=== PATIENT | female | born 1965 | race Caucasian/White ===

== ENCOUNTER 2019-04-29 23:10 | Inpatient (IN) | payer MEDICARE, MEDICAID ==
[~2019-04-29] VITALS: Ht 167.6 cm; Wt 114.5 kg
[~2019-04-29 23:10] MED LIST: AMOX1TAB58 PO; CLON2TAB9 PO; CLONAZEPAM1 MG PO; DILT120C99 PO; DIVA250T PO; GUAI100L41 PO; IBUP-1027 PO; LEVO100T5 PO; LITH450T PO; METO25TA4 PO; MINE120C TP; NICO4GUM42 BC; OXYB5TAB33 PO; PALI6TAB3 PO; QUET300T5 PO; QUET400T4 PO; ZOLP10TA PO
[2019-04-29 23:59] LABS: BASO # 0.1 x10^3/uL (0.0-0.2); BASO % 1 % (0-3); EOS % 0 % (0-3); HEMATOCRIT 40.1 % (36.0-47.0); HEMOGLOBIN 13.1 g/dL (12.0-15.5); LYMPH # 1.5 x10^3/uL (1.0-4.8); LYMPH % 7 % (24-48); MEAN CORPUSCULAR HEMOGLOBIN 29 pg (25-35); MEAN CORPUSCULAR HGB CONC 33 g/dL (31-37); MEAN CORPUSCULAR VOLUME 88 fL (79-100); MONO # 2.3 x10^3/uL (0.0-1.1); MONO % 11 % (0-9); NEUT # 17.4 x10^3/uL (1.8-7.7); NEUT % 82 % (31-73); PLATELET COUNT 175 x10^3/uL (140-400); RED BLOOD COUNT 4.54 x10^6/uL (3.50-5.40); RED CELL DISTRIBUTION WIDTH 14.7 % (11.5-14.5); WHITE BLOOD COUNT 21.4 x10^3/uL (4.0-11.0)
[2019-04-30] VITALS (28 sets, daily range): BP systolic 92–151; BP diastolic 52–94
[2019-04-30 00:06] LABS: CALCIUM 9.5 mg/dL (8.5-10.1); CREATININE 1.1 mg/dL (0.6-1.0); GFR 51.8; POTASSIUM 3.7 mmol/L (3.5-5.1)
[2019-04-30 00:12] LABS: ALBUMIN 3.2 g/dL (3.4-5.0); ALBUMIN/GLOBULIN RATIO 0.8 (1.0-1.7); MAGNESIUM 2.4 mg/dL (1.8-2.4); TOTAL BILIRUBIN 0.4 mg/dL (0.2-1.0); TOTAL PROTEIN 7.3 g/dL (6.4-8.2)
[2019-04-30 00:18] LABS: % LYMPHS 6 % (24-48); % MONOS 3 % (0-10); % SEGS 91 % (35-66); ANISOCYTOSIS SLIGHT; PLT ESTIMATE ADEQUATE (ADEQUATE); TOXIC VACUOLATION SLIGHT
--- NOTE | 2019-04-30 00:34 | PHYS DOC ---
Past Medical History Past Medical History: Anxiety, High Cholesterol, Hypothyroid, Pneumonia, Other Additional Past Medical Histor: unspecified heart failure Past Surgical History: Other Additional Past Surgical Histo: unknown Alcohol Use: None Drug Use: None Adult General Chief Complaint Chief Complaint: SHORTNESS OF BREATH HPI HPI Patient is a 53-year-old female who arrives via EMS with STEMI alert by EMS. EMS responded for report of shortness of breath with low oxygen saturation and complaint of generalized weakness for the last few days. Patient denies any chest pain, nausea, vomiting or diaphoresis. She does admit to feeling some shortness of breath.[] Review of Systems Review of Systems Constitutional: Denies fever or chills [] Respiratory: Complains of shortness of breath [] Cardiovascular: No additional information not addressed in HPI [] GI: Denies abdominal pain, nausea, vomiting or diarrhea [] Integument: Denies rash or skin lesions [] Neurologic: Denies headache, focal weakness or sensory changes [] All other systems were reviewed and found to be within normal limits, except as documented in this note. Current Medications Current Medications Current Medications Medications (Trade) Dose Ordered Sig/Olu Start Time Stop Time Status Last Admin Dose Admin Atorvastatin Calcium (Lipitor) 40 mg QHS 04/30/19 21:00 Heparin Sodium (Porcine) (Heparin Sodium) 2,000 unit PRN Q6HRS PRN 04/30/19 00:45 Heparin Sodium/ Dextrose 500 ml @ 0 mls/hr CONT PRN PRN 04/30/19 00:45 Allergies Allergies Allergies Coded Allergies Type Severity Reaction Last Updated Verified No Known Drug Allergies 09/23/15 No Physical Exam Physical Exam Constitutional: Well developed, well nourished, no acute distress, non-toxic appearance. [] HENT: Normocephalic, atraumatic, bilateral external ears normal, oropharynx moist, no oral exudates, nose normal. [] Eyes: PERRLA, EOMI, conjunctiva normal, no discharge. [] Neck: Normal range of motion, no tenderness, supple. [] Cardiovascular: Regular rate and rhythm[] Lungs & Thorax: Very good air movement is noted throughout with fine rhonchi to auscultation [] Abdomen: Bowel sounds normal, soft, morbidly obese, no tenderness. [] Skin: Warm, dry, no erythema, no rash. [] Extremities: No tenderness, no cyanosis, no clubbing, ROM intact. [] Neurologic: Alert and oriented X 3, no focal deficits noted. [] Current Patient Data Lab Values Laboratory Tests Test 04/29/19 23:45 White Blood Count 21.4 x10^3/uL (4.0-11.0) H Red Blood Count 4.54 x10^6/uL (3.50-5.40) Hemoglobin 13.1 g/dL (12.0-15.5) Hematocrit 40.1 % (36.0-47.0) Mean Corpuscular Volume 88 fL (79-100) Mean Corpuscular Hemoglobin 29 pg (25-35) Mean Corpuscular Hemoglobin Concent 33 g/dL (31-37) Red Cell Distribution Width 14.7 % (11.5-14.5) H Platelet Count 175 x10^3/uL (140-400) Neutrophils (%) (Auto) 82 % (31-73) H Lymphocytes (%) (Auto) 7 % (24-48) L Monocytes (%) (Auto) 11 % (0-9) H Eosinophils (%) (Auto) 0 % (0-3) Basophils (%) (Auto) 1 % (0-3) Neutrophils # (Auto) 17.4 x10^3/uL (1.8-7.7) H Lymphocytes # (Auto) 1.5 x10^3/uL (1.0-4.8) Monocytes # (Auto) 2.3 x10^3/uL (0.0-1.1) H Eosinophils # (Auto) 0.0 x10^3/uL (0.0-0.7) Basophils # (Auto) 0.1 x10^3/uL (0.0-0.2) Segmented Neutrophils % 91 % (35-66) H Lymphocytes % 6 % (24-48) L Monocytes % 3 % (0-10) Toxic Vacuolation Slight Platelet Estimate Adequate (ADEQUATE) Anisocytosis Slight Sodium Level 143 mmol/L (136-145) Potassium Level 3.7 mmol/L (3.5-5.1) Chloride Level 105 mmol/L (98-107) Carbon Dioxide Level 22 mmol/L (21-32) Anion Gap 16 (6-14) H Blood Urea Nitrogen 15 mg/dL (7-20) Creatinine 1.1 mg/dL (0.6-1.0) H Estimated GFR (Cockcroft-Gault) 51.8 BUN/Creatinine Ratio 14 (6-20) Glucose Level 124 mg/dL (70-99) H Calcium Level 9.5 mg/dL (8.5-10.1) Magnesium Level 2.4 mg/dL (1.8-2.4) Total Bilirubin 0.4 mg/dL (0.2-1.0) Aspartate Amino Transferase (AST) 47 U/L (15-37) H Alanine Aminotransferase (ALT) 24 U/L (14-59) Alkaline Phosphatase 78 U/L (46-116) Troponin I Quantitative 12.244 ng/mL (0.000-0.055) HS-Kpy-B-Type Natriuretic Peptide 3772 pg/mL (0-124) H Total Protein 7.3 g/dL (6.4-8.2) Albumin 3.2 g/dL (3.4-5.0) L Albumin/Globulin Ratio 0.8 (1.0-1.7) L Lipase 66 U/L (73-393) L Laboratory Tests 04/29/19 23:45 Laboratory Tests 04/29/19 23:45 EKG EKG [] Interpretation Time: EKG demonstrates sinus rhythm with rate of 95. Radiology/Procedures Radiology/Procedures [] Course & Med Decision Making Course & Med Decision Making Pertinent Labs and Imaging studies reviewed. (See chart for details) [] Dragon Disclaimer Dragon Disclaimer This electronic medical record was generated, in whole or in part, using a voice recognition dictation system. Departure Departure Impression: Primary Impression: NSTEMI (non-ST elevated myocardial infarction) Disposition: ADMITTED INPATIENT Admitting Physician: MICHAEL (Dr. Wray) Condition: IMPROVED Referrals: ALEXANDRA ELMORE (PCP) CRISSY CROFT Jr. DO Apr 30, 2019 00:34
[2019-04-30] MEDS ORDERED: HEPARIN for IV BOLUS 10,000 UNIT/10 ML VIAL. IV PRN (00:45)
[2019-04-30] MEDS ORDERED: HEPARIN 25,000UTS/500ML PREMIX 500 ML IV PRN (00:45)
[2019-04-30] MEDS ORDERED: HEPARIN for IV BOLUS 10,000 UNIT/10 ML VIAL. IV ONE (01:00)
[2019-04-30] MEDS ORDERED: ONDANSETRON PF 4 MG/2 ML VIAL. IV PRN (01:45)
[2019-04-30] MEDS ORDERED: MORPHINE SULFATE 2 MG/ML VIAL. IV PRN (01:45)
--- NOTE | 2019-04-30 02:40 | NUR ---
Pt arrived on unit via bed accompanied by ED RN. Pt oriented to unit including call light, bathroom use, and privacy policies. Pt c/o chest discomfort and stated it has not changed since her time in the ED. Pt accompanied by family and admission questions answered by pt's mother. Will continue to monitor
[2019-04-30] MEDS ORDERED: MORPHINE SULFATE 2 MG/ML VIAL. IV ONE (02:45)
[2019-04-30] MEDS: HEPARIN for IV BOLUS 10,000 UNIT/10 ML VIAL. IV PRN (02:54)
[2019-04-30] MEDS: HEPARIN 25,000UTS/500ML PREMIX 500 ML IV PRN (02:59)
[2019-04-30] MEDS ORDERED: OXYB5TAB33 PO (05:47)
--- NOTE | 2019-04-30 06:08 | RAD ---
Study: PORTABLE CHEST 1V Indication: Shortness of breath. Comparison: 12/06/2015 Findings: The cardiomediastinal silhouette is enlarged. The central vascular structures are prominent but to a similar degree relative to the prior. Blunting of the left costophrenic angle suggesting a pleural effusion. Left lower lung volume loss is also likely present. No pneumothorax. No discrete lobar infiltrate however there is haziness at the retrocardiac left lung medially. No free air seen under the diaphragm. Impression: 1. Enlargement of the cardiomediastinal silhouette as well as central vascular prominence. This appearance is similar to the prior. A component of pulmonary edema is likely present as there is the suggestion of a small left pleural effusion. 2. Basilar volume loss as well as hazy increased attenuation at the medial aspect of the left lower lung. Though this appearance is not overtly concerning, consider correlation for any laboratory findings that would suggest pneumonia. Electronically signed by: DANIEL CARBAJAL MD (04/30/2019 6:05 AM) [facility]
[2019-04-30] MEDS ORDERED: ONDA4TAB7 PO (06:09)
[2019-04-30] MEDS ORDERED: ACET325T9 PO (06:09)
[2019-04-30] MEDS ORDERED: DILT180C2 PO (06:09)
[2019-04-30] MEDS ORDERED: POLY17PO29 PO (06:09)
[2019-04-30] MEDS ORDERED: LOPE2CAP3 PO (06:09)
[2019-04-30] MEDS ORDERED: IBUP-1027 PO (06:09)
[2019-04-30] MEDS ORDERED: IPRA3AMP29 NEB (06:09)
[2019-04-30] MEDS ORDERED: DIVA500T17 PO (06:09)
[2019-04-30] MEDS ORDERED: LEVO125T5 PO (06:09)
[2019-04-30] MEDS ORDERED: LITH300T3 PO (06:09)
[2019-04-30] MEDS ORDERED: DILT240C2 PO (06:10)
[2019-04-30] MEDS ORDERED: FLU VAX QS 2019-20 (36MOS+)/PF 0.5 ML SYRINGE. VAX IM ONE (09:00)
[2019-04-30] MEDS: IV NORMAL SALINE 1000ML BAG 1,000 ML IV SCH ×2 (11:00→23:32)
[2019-04-30] MEDS: ASPIRIN ENTERIC COATED 81 MG TABLET.DR. PO SCH (11:27)
[2019-04-30] MEDS: METOPROLOL TART IMMED RELEASE 25 MG TABLET. PO SCH ×2 (11:27→21:03)
--- NOTE | 2019-04-30 11:44 | HP ---
ADMIT DATE: 04/30/2019 CHIEF COMPLAINT: Shortness of breath. HISTORY OF PRESENT ILLNESS: The patient is a pleasant middle-aged white female, who presented to the ER with shortness of breath. Interestingly, her troponin was bumped to 12.2. She appears to have had a myocardial infarction. I discussed the case with ER physician. We admitted the patient to the ICU with consultation to Cardiology. PAST MEDICAL HISTORY: Anxiety, hypothyroidism, pneumonia, CHF, hypertension, I think she has seizures, psychiatric issues, insomnia, bipolar, urinary incontinence. ALLERGIES: HALDOL. FAMILY HISTORY: Hypertension. SOCIAL HISTORY: She does not drink, smoke, or take drugs. MEDICATIONS: Reviewed, please refer to the MRAD. REVIEW OF SYSTEMS: GENERAL: No history of weight change, weakness or fevers. SKIN: No bruising, hair changes or rashes. EYES: No blurred, double or loss of vision. NOSE AND THROAT: No history of nosebleeds, hoarseness or sore throat. HEART: No history of palpitations, chest pain or shortness of breath on exertion. LUNGS: Denies cough, hemoptysis, wheezing or shortness of breath. GASTROINTESTINAL: Denies changes in appetite, nausea, vomiting, diarrhea or constipation. GENITOURINARY: No history of frequency, urgency, hesitancy or nocturia. NEUROLOGIC: Denies history of numbness, tingling, tremor or weakness. PSYCHIATRIC: No history of panic, anxiety or depression. ENDOCRINE: No history of heat or cold intolerance, polyuria or polydipsia. EXTREMITIES: Denies muscle weakness, joint pain, pain on walking or stiffness. PHYSICAL EXAMINATION: VITALS: Within normal limits and are stable. GENERAL: No apparent distress. Alert and oriented. HEENT: Head is normocephalic, atraumatic, pupils were equally round and reactive to light and accommodation. NECK: Supple, no JVD, no thyromegaly was noted. LUNGS: Clear to auscultation in all lung coronado without rhonchi or wheezing. HEART: RRR, S1, S2 present. Peripheral pulses intact, no obvious murmurs were noted. ABDOMEN: Soft, nontender. Positive bowel sounds no organomegaly, normal bowel sounds. EXTREMITIES: Without any cyanosis, clubbing, or edema. Pedal pulses intact, Homans sign is negative. NEUROLOGIC: Normal speech, normal tone. A & O x3, moves all extremities, no obvious focal deficits. PSYCHIATRIC: Normal affect, normal mood. Stable. SKIN: No ulcerations or rashes, good skin turgor, no jaundice. VASCULAR: Good capillary refill, neurovascular bundle appears to be intact. LABORATORY DATA: Troponin is 12. ASSESSMENT AND PLAN: Acute myocardial infarction. The patient has been admitted. We are consulting Cardiology. Serial enzymes, serial EKGs, ICU monitoring. Resume home meds, DVT prophylaxis. Suspect she is going to need a cardiac cath. We will await Cardiology input. JUAN ANTONIO SANDY DO DR: CHERYL/archie JOB#: [id number] / [id number]
[2019-04-30] MEDS ORDERED: HEPARIN for IV BOLUS 10,000 UNIT/10 ML VIAL. ONE (12:06)
[2019-04-30] MEDS ORDERED: IODIXANOL 320 MG/ML 100 ML VIAL. ONE (12:06)
[2019-04-30] MEDS ORDERED: MIDAZOLAM HCL/PF 2 MG/2 ML VIAL. ONE (12:06)
[2019-04-30] MEDS ORDERED: VERAPAMIL 5 MG/2 ML VIAL. ONE (12:06)
[2019-04-30] MEDS ORDERED: fentaNYL PF VIAL 100 MCG/2 ML VIAL ONE (12:06)
[2019-04-30] MEDS ORDERED: NITROGLYCERIN 200 MCG/2 ML SYRINGE FOR CATH/VASC LAB. ONE (12:07)
[2019-04-30] MEDS ORDERED: HEPARIN for ARTERIAL LINE 1,500 ML ONE (12:07)
[2019-04-30] MEDS ORDERED: VERAPAMIL 5 MG/2 ML VIAL. IART ONE (12:45)
[2019-04-30] MEDS ORDERED: fentaNYL PF VIAL 100 MCG/2 ML VIAL IV ONE (12:45)
[2019-04-30] MEDS ORDERED: HEPARIN for IV BOLUS 10,000 UNIT/10 ML VIAL. IART ONE (12:45)
[2019-04-30] MEDS ORDERED: MIDAZOLAM HCL/PF 2 MG/2 ML VIAL. IV ONE (12:45)
[2019-04-30] MEDS ORDERED: LIDOCAINE 1% PF 2 ML VIAL. INJ ONE (12:45)
[2019-04-30] MEDS ORDERED: NITROGLYCERIN 200 MCG/2 ML SYRINGE FOR CATH/VASC LAB. IART ONE (12:45)
[2019-04-30] MEDS ORDERED: IODIXANOL 320 MG/ML 100 ML VIAL. IART ONE (12:45)
[2019-04-30] MEDS ORDERED: NOREPINEPHRIN 8MG/250ML PREMIX 250 ML IV PRN (13:00)
--- NOTE | 2019-04-30 14:03 | PDOC2 ---
CARDIOLOGY CONSULT NOTE CHEIF COMPLAINT: Chest pain HPI: 53-year-old woman coming into the hospital in the setting of chest pain and shortness of breath. She probably has been having shortness of breath for 3 or 4 days. EMS headache initially activated the catheter lab team due to concern for acute ST elevation LA in the teacher early childhood development hours today. After review there did not appear to be any significant ST elevations and she was treated medically. This morning she continued to have hypoxia and chest discomfort and therefore after discussion the risks and benefits of the procedure with the patient's mother due to the patient's cognitive limitations the patient was taken to the catheterization laboratory. Her catheter revealed likely spontaneous coronary artery dissection versus stress-induced cardio myopathy of unclear etiology. PMHX: Bipolar/schizophrenia Prior history of tobacco abuse SOCHX: Lives in [facility] FAMHX: Noncontributory for any cardiac issues CURRENT MEDS: Current Medications Medications (Trade) Dose Ordered Sig/Olu Route PRN Reason Start Time Stop Time Status Last Admin Dose Admin Heparin Sodium/ Dextrose 500 ml @ 0 mls/hr CONT PRN IV CARDIOVASCULAR PROTOCOL 04/30/19 02:00 04/30/19 02:59 Heparin Sodium (Porcine) (Heparin Sodium) 3,050 unit PRN Q6HRS PRN IV FOR UFH LEVEL LESS THAN 0.2 04/30/19 02:00 04/30/19 02:54 Sodium Chloride 1,000 ml @ 75 mls/hr [id number] IV 04/30/19 11:00 04/30/19 11:00 Metoprolol Tartrate (Lopressor) 25 mg BID PO 04/30/19 11:15 04/30/19 11:27 Aspirin (Ecotrin) 81 mg DAILYWBKFT PO 04/30/19 11:15 04/30/19 11:27 Nitroglycerin (Nitroglycerin) 200 mcg 1X ONCE IART 04/30/19 12:45 04/30/19 12:50 DC 04/30/19 12:45 Verapamil HCl (Verapamil) 2.5 mg 1X ONCE IART 04/30/19 12:45 04/30/19 12:50 DC 04/30/19 12:45 Heparin Sodium (Porcine) (Heparin Sodium) 2,500 unit 1X ONCE IART 04/30/19 12:45 04/30/19 12:50 DC 04/30/19 12:45 Heparin Sodium/ Sodium Chloride (HEPARIN for ARTERIAL LINE FLUSH) 1,000 unit 1X ONCE IART 04/30/19 12:45 04/30/19 12:50 DC 04/30/19 12:45 Heparin Sodium/ Sodium Chloride (HEPARIN for ARTERIAL LINE FLUSH) 1,000 unit 1X ONCE IART 04/30/19 12:45 04/30/19 12:50 DC 04/30/19 12:45 Midazolam HCl (Versed) 2 mg 1X ONCE IV 04/30/19 12:45 04/30/19 12:50 DC 04/30/19 12:45 Fentanyl Citrate (Fentanyl 2ml Vial) 100 mcg 1X ONCE IV 04/30/19 12:45 04/30/19 12:50 DC 04/30/19 12:45 Iodixanol (Visipaque 320) 100 ml 1X ONCE IART 04/30/19 12:45 04/30/19 12:50 DC 04/30/19 12:45 Lidocaine HCl (Xylocaine-Mpf 1% 2ml Vial) 2 ml 1X ONCE INJ 04/30/19 12:45 04/30/19 12:50 DC 04/30/19 12:45 ALLERGIES: Allergies Coded Allergies Type Severity Reaction Last Updated Verified haloperidol Allergy Severe tongue swelling 04/30/19 Yes ROS: She has notable dyspnea, chest tenderness and chest pain. She denies any associated lower extremity edema, orthopnea or PND. She currently does have some increasing oxygen requirements. No abdominal pain. No palpitations or syncope. PHYSICAL EXAM: Vital Signs/I&O: Vital Signs Date Time Temp Pulse Resp B/P (MAP) Pulse Ox O2 Delivery O2 Flow Rate FiO2 04/30/19 13:29 112 16 96 Nasal Cannula 3.0 04/30/19 11:27 123/85 04/30/19 08:00 98.8 98.8 I & O 04/29/19 04/29/19 04/30/19 15:00 23:00 07:00 Intake Total 47 ml Output Total 0 ml Balance 47 ml Physical Exam: GEN.: No apparent distress. Alert and oriented. HEENT: Head is normocephalic, atraumatic NECK: Supple. LUNGS: Decreased breath sounds at lung bases. HEART: Irregularly irregular S1, S2 present. Peripheral pulses intact ABDOMEN: Soft, nontender. Positive bowel sounds. EXTREMITIES: Without any cyanosis. NEUROLOGIC: Normal speech, normal tone PSYCHIATRIC: Normal affect, normal mood. SKIN: No ulcerations DIAGNOSTIC TESTING: Troponin peaked at 12.6 EKG demonstrates nonspecific diffuse ST-T wave changes Cardiac catheterization revealed likely spontaneous coronary artery dissection of the mid distal LAD and probably the distal PDA. LV function was moderately diminished at approximately 40%. Lab Laboratory Tests Test 04/29/19 23:45 04/30/19 09:10 White Blood Count 21.4 x10^3/uL (4.0-11.0) H Red Blood Count 4.54 x10^6/uL (3.50-5.40) Hemoglobin 13.1 g/dL (12.0-15.5) Hematocrit 40.1 % (36.0-47.0) Mean Corpuscular Volume 88 fL (79-100) Mean Corpuscular Hemoglobin 29 pg (25-35) Mean Corpuscular Hemoglobin Concent 33 g/dL (31-37) Red Cell Distribution Width 14.7 % (11.5-14.5) H Platelet Count 175 x10^3/uL (140-400) Neutrophils (%) (Auto) 82 % (31-73) H Lymphocytes (%) (Auto) 7 % (24-48) L Monocytes (%) (Auto) 11 % (0-9) H Eosinophils (%) (Auto) 0 % (0-3) Basophils (%) (Auto) 1 % (0-3) Neutrophils # (Auto) 17.4 x10^3/uL (1.8-7.7) H Lymphocytes # (Auto) 1.5 x10^3/uL (1.0-4.8) Monocytes # (Auto) 2.3 x10^3/uL (0.0-1.1) H Eosinophils # (Auto) 0.0 x10^3/uL (0.0-0.7) Basophils # (Auto) 0.1 x10^3/uL (0.0-0.2) Segmented Neutrophils % 91 % (35-66) H Lymphocytes % 6 % (24-48) L Monocytes % 3 % (0-10) Toxic Vacuolation Slight Platelet Estimate Adequate (ADEQUATE) Anisocytosis Slight Sodium Level 143 mmol/L (136-145) Potassium Level 3.7 mmol/L (3.5-5.1) Chloride Level 105 mmol/L (98-107) Carbon Dioxide Level 22 mmol/L (21-32) Anion Gap 16 (6-14) H Blood Urea Nitrogen 15 mg/dL (7-20) Creatinine 1.1 mg/dL (0.6-1.0) H Estimated GFR (Cockcroft-Gault) 51.8 BUN/Creatinine Ratio 14 (6-20) Glucose Level 124 mg/dL (70-99) H Calcium Level 9.5 mg/dL (8.5-10.1) Total Bilirubin 0.4 mg/dL (0.2-1.0) Aspartate Amino Transf (AST/SGOT) 47 U/L (15-37) H Alkaline Phosphatase 78 U/L (46-116) Total Protein 7.3 g/dL (6.4-8.2) Albumin 3.2 g/dL (3.4-5.0) L Albumin/Globulin Ratio 0.8 (1.0-1.7) L Lipase 66 U/L (73-393) L Heparin Anti-Xa Act, Unfractionated < 0.10 IU/mL (0.30-0.70) L Laboratory Tests 04/29/19 23:45 ASSESSMENT: 1. Acute hypoxic respiratory failure 2. Non-ST elevation microinfarction likely secondary to spontaneous coronary artery dissection 3. Prior history of tobacco abuse 4. Cannot rule out stress-induced cardio myopathy. 5. Cor pulmonale based on right heart catheterization with a right atrial pressure 14, mean PA pressure of 31, normal LVEDP. PLAN: 1. Discussed with the patient's family in great detail. At this present time she does not appear to be in cardiac shock and we will continue intravenous and coagulation. There is a small possibility based on her right heart catheter that this could've been precipitated by pulmonary embolus although the treatment management would be the same at this time. Would defer any CT angiography unless she has any clinical deterioration. Check lower extremity venous Dopplers. Continue asa, statin, metoprolol and hep gtt for now. MIC OLSON MD Apr 30, 2019 14:03
[2019-04-30] MEDS: ATORVASTATIN CALCIUM 40 MG TABLET. PO SCH (21:03)
--- NOTE | 2019-04-30 22:09 | NUR ---
paged Dr. Pierre to confirm Heparin gtt is still to be running as it was not restarted following seed analysis laboratory assistant. Dr. Pierre requested Heparin gtt be restarted at initial rate.
[2019-05-01] VITALS (15 sets, daily range): BP systolic 91–150; BP diastolic 51–92
[2019-05-01 03:52] LABS: BASO # 0.1 x10^3/uL (0.0-0.2); BASO % 1 % (0-3); EOS # 0.1 x10^3/uL (0.0-0.7); EOS % 1 % (0-3); HEMATOCRIT 35.1 % (36.0-47.0); HEMOGLOBIN 11.4 g/dL (12.0-15.5); LYMPH # 1.8 x10^3/uL (1.0-4.8); LYMPH % 13 % (24-48); MEAN CORPUSCULAR HEMOGLOBIN 28 pg (25-35); MEAN CORPUSCULAR HGB CONC 33 g/dL (31-37); MEAN CORPUSCULAR VOLUME 87 fL (79-100); MONO # 1.3 x10^3/uL (0.0-1.1); MONO % 9 % (0-9); NEUT # 10.6 x10^3/uL (1.8-7.7); NEUT % 77 % (31-73); PLATELET COUNT 191 x10^3/uL (140-400); RED BLOOD COUNT 4.04 x10^6/uL (3.50-5.40); WHITE BLOOD COUNT 13.9 x10^3/uL (4.0-11.0)
[2019-05-01 04:10] LABS: ALBUMIN 2.5 g/dL (3.4-5.0); ALBUMIN/GLOBULIN RATIO 0.6 (1.0-1.7); CREATININE 0.9 mg/dL (0.6-1.0); GFR 65.2; POTASSIUM 3.8 mmol/L (3.5-5.1); TOTAL BILIRUBIN 0.3 mg/dL (0.2-1.0); TOTAL PROTEIN 6.7 g/dL (6.4-8.2)
[2019-05-01] MEDS: HEPARIN for IV BOLUS 10,000 UNIT/10 ML VIAL. IV PRN ×2 (04:17→12:50)
--- NOTE | 2019-05-01 10:06 | PDOC ---
[employer] PROGRESS NOTE Chief Complaint Chief Complaint Chest pain History of Present Illness History of Present Illness 05/01/19 Pt seen and examined Pt had an NSTEMI and was in the photonic laboratory technician yesterday with likely coronary artery dissection Troponin peak 12.2 Pt was quite talkative today and seems to be at her baseline DW RN and pt's mother Vitals/I&O Vitals/I&O: Vital Signs Date Time Temp Pulse Resp B/P (MAP) Pulse Ox O2 Delivery O2 Flow Rate FiO2 05/01/19 09:00 73 30 104/59 (74) 94 Nasal Cannula 2.0 05/01/19 07:00 98.3 98.3 I & O 04/30/19 04/30/19 05/01/19 15:00 23:00 07:00 Intake Total 200 ml 683 ml 1596 ml Output Total 850 ml 1 ml 1000 ml Balance -650 ml 682 ml 596 ml Physical Exam General: Alert, No acute distress Heart: Regular rate Lungs: Clear, Other Abdomen: Normal bowel sounds Extremities: No clubbing, No cyanosis Skin: No rashes Labs Labs: Laboratory Tests Test 05/01/19 03:30 White Blood Count 13.9 x10^3/uL (4.0-11.0) Red Blood Count 4.04 x10^6/uL (3.50-5.40) Hemoglobin 11.4 g/dL (12.0-15.5) Hematocrit 35.1 % (36.0-47.0) Mean Corpuscular Volume 87 fL (79-100) Mean Corpuscular Hemoglobin 28 pg (25-35) Mean Corpuscular Hemoglobin Concent 33 g/dL (31-37) Red Cell Distribution Width 15.0 % (11.5-14.5) Platelet Count 191 x10^3/uL (140-400) Neutrophils (%) (Auto) 77 % (31-73) Lymphocytes (%) (Auto) 13 % (24-48) Monocytes (%) (Auto) 9 % (0-9) Eosinophils (%) (Auto) 1 % (0-3) Basophils (%) (Auto) 1 % (0-3) Neutrophils # (Auto) 10.6 x10^3/uL (1.8-7.7) Lymphocytes # (Auto) 1.8 x10^3/uL (1.0-4.8) Monocytes # (Auto) 1.3 x10^3/uL (0.0-1.1) Eosinophils # (Auto) 0.1 x10^3/uL (0.0-0.7) Basophils # (Auto) 0.1 x10^3/uL (0.0-0.2) Heparin Anti-Xa Act, Unfractionated < 0.10 IU/mL (0.30-0.70) Sodium Level 142 mmol/L (136-145) Potassium Level 3.8 mmol/L (3.5-5.1) Chloride Level 105 mmol/L (98-107) Carbon Dioxide Level 28 mmol/L (21-32) Anion Gap 9 (6-14) Blood Urea Nitrogen 10 mg/dL (7-20) Creatinine 0.9 mg/dL (0.6-1.0) Estimated GFR (Cockcroft-Gault) 65.2 BUN/Creatinine Ratio 11 (6-20) Glucose Level 104 mg/dL (70-99) Calcium Level 9.0 mg/dL (8.5-10.1) Total Bilirubin 0.3 mg/dL (0.2-1.0) Aspartate Amino Transf (AST/SGOT) 37 U/L (15-37) Alanine Aminotransferase (ALT/SGPT) 34 U/L (14-59) Alkaline Phosphatase 71 U/L (46-116) Total Protein 6.7 g/dL (6.4-8.2) Albumin 2.5 g/dL (3.4-5.0) Albumin/Globulin Ratio 0.6 (1.0-1.7) Review of Systems Review of Systems: Denies n/v/d Denies SOA Assessment and Plan Assessmemt and Plan Problems Medical Problems: (1) NSTEMI (non-ST elevated myocardial infarction) Status: Acute Assessment NSTEMI Bipolar Schizophrenia Cor pulmonale POD day 1 photonic laboratory technician Plan Cardiac monitoring Wound care Appreciate cardiology input Serial EKGs Home meds DVT prophylaxis Full code Comment Review of Relevant I have reviewed the following items bushra (where applicable) has been applied. Medications: Current Medications Medications (Trade) Dose Ordered Sig/Olu Route PRN Reason Start Time Stop Time Status Last Admin Dose Admin Atorvastatin Calcium (Lipitor) 40 mg QHS PO 04/30/19 21:00 04/30/19 21:03 Sodium Chloride 1,000 ml @ 75 mls/hr [id number] IV 04/30/19 11:00 04/30/19 23:32 Metoprolol Tartrate (Lopressor) 25 mg BID PO 04/30/19 11:15 04/30/19 21:03 Aspirin (Ecotrin) 81 mg DAILYWBKFT PO 04/30/19 11:15 04/30/19 11:27 Nitroglycerin (Nitroglycerin) 200 mcg 1X ONCE IART 04/30/19 12:45 04/30/19 12:50 DC 04/30/19 12:45 Verapamil HCl (Verapamil) 2.5 mg 1X ONCE IART 04/30/19 12:45 04/30/19 12:50 DC 04/30/19 12:45 Heparin Sodium (Porcine) (Heparin Sodium) 2,500 unit 1X ONCE IART 04/30/19 12:45 04/30/19 12:50 DC 04/30/19 12:45 Heparin Sodium/ Sodium Chloride (HEPARIN for ARTERIAL LINE FLUSH) 1,000 unit 1X ONCE IART 04/30/19 12:45 04/30/19 12:50 DC 04/30/19 12:45 Heparin Sodium/ Sodium Chloride (HEPARIN for ARTERIAL LINE FLUSH) 1,000 unit 1X ONCE IART 04/30/19 12:45 04/30/19 12:50 DC 04/30/19 12:45 Midazolam HCl (Versed) 2 mg 1X ONCE IV 04/30/19 12:45 04/30/19 12:50 DC 04/30/19 12:45 Fentanyl Citrate (Fentanyl 2ml Vial) 100 mcg 1X ONCE IV 04/30/19 12:45 04/30/19 12:50 DC 04/30/19 12:45 Iodixanol (Visipaque 320) 100 ml 1X ONCE IART 04/30/19 12:45 04/30/19 12:50 DC 04/30/19 12:45 Lidocaine HCl (Xylocaine-Mpf 1% 2ml Vial) 2 ml 1X ONCE INJ 04/30/19 12:45 04/30/19 12:50 DC 04/30/19 12:45 JUAN ANTONIO SANDY III DO May 01, 2019 10:06
[2019-05-01] MEDS: HEPARIN 25,000UTS/500ML PREMIX 500 ML IV PRN (10:40)
--- NOTE | 2019-05-01 10:45 | PDOC ---
CARDIOLOGY PROGRESS NOTE SUBJECTIVE: No acute issues overnight. Still needing O2. No chest pain. Family feels breathing is better. OBJECTIVE: Vital Signs/I&O: Vital Signs Date Time Temp Pulse Resp B/P (MAP) Pulse Ox O2 Delivery O2 Flow Rate FiO2 05/01/19 10:00 82 26 110/68 (82) 95 Nasal Cannula 2.0 05/01/19 07:00 98.3 98.3 I & O 04/30/19 04/30/19 05/01/19 14:59 22:59 06:59 Intake Total 200 ml 683 ml 1596 ml Output Total 850 ml 1 ml 1000 ml Balance -650 ml 682 ml 596 ml Objective: GEN.: No apparent distress. Alert and oriented. HEENT: Head is normocephalic, atraumatic NECK: Supple. LUNGS: Clear to auscultation. HEART: RRR, S1, S2 present. Peripheral pulses intact ABDOMEN: Soft, nontender. Positive bowel sounds. EXTREMITIES: Without any cyanosis. NEUROLOGIC: Normal speech, normal tone PSYCHIATRIC: Normal affect, normal mood. SKIN: No ulcerations CURRENT MEDICATIONS: Current Medications Medications (Trade) Dose Ordered Sig/Olu Route PRN Reason Start Time Stop Time Status Last Admin Dose Admin Atorvastatin Calcium (Lipitor) 40 mg QHS PO 04/30/19 21:00 04/30/19 21:03 Sodium Chloride 1,000 ml @ 75 mls/hr [id number] IV 04/30/19 11:00 04/30/19 23:32 Metoprolol Tartrate (Lopressor) 25 mg BID PO 04/30/19 11:15 04/30/19 21:03 Aspirin (Ecotrin) 81 mg DAILYWBKFT PO 04/30/19 11:15 04/30/19 11:27 Nitroglycerin (Nitroglycerin) 200 mcg 1X ONCE IART 04/30/19 12:45 04/30/19 12:50 DC 04/30/19 12:45 Verapamil HCl (Verapamil) 2.5 mg 1X ONCE IART 04/30/19 12:45 04/30/19 12:50 DC 04/30/19 12:45 Heparin Sodium (Porcine) (Heparin Sodium) 2,500 unit 1X ONCE IART 04/30/19 12:45 04/30/19 12:50 DC 04/30/19 12:45 Heparin Sodium/ Sodium Chloride (HEPARIN for ARTERIAL LINE FLUSH) 1,000 unit 1X ONCE IART 04/30/19 12:45 04/30/19 12:50 DC 04/30/19 12:45 Heparin Sodium/ Sodium Chloride (HEPARIN for ARTERIAL LINE FLUSH) 1,000 unit 1X ONCE IART 04/30/19 12:45 04/30/19 12:50 DC 04/30/19 12:45 Midazolam HCl (Versed) 2 mg 1X ONCE IV 04/30/19 12:45 04/30/19 12:50 DC 04/30/19 12:45 Fentanyl Citrate (Fentanyl 2ml Vial) 100 mcg 1X ONCE IV 04/30/19 12:45 04/30/19 12:50 DC 04/30/19 12:45 Iodixanol (Visipaque 320) 100 ml 1X ONCE IART 04/30/19 12:45 04/30/19 12:50 DC 04/30/19 12:45 Lidocaine HCl (Xylocaine-Mpf 1% 2ml Vial) 2 ml 1X ONCE INJ 04/30/19 12:45 04/30/19 12:50 DC 04/30/19 12:45 DIAGNOSTIC TESTING: labs reviewed. Labs: Laboratory Tests 05/01/19 03:30 Laboratory Tests Test 05/01/19 03:30 White Blood Count 13.9 x10^3/uL (4.0-11.0) H Red Blood Count 4.04 x10^6/uL (3.50-5.40) Hemoglobin 11.4 g/dL (12.0-15.5) L Hematocrit 35.1 % (36.0-47.0) L Mean Corpuscular Volume 87 fL (79-100) Mean Corpuscular Hemoglobin 28 pg (25-35) Mean Corpuscular Hemoglobin Concent 33 g/dL (31-37) Red Cell Distribution Width 15.0 % (11.5-14.5) H Platelet Count 191 x10^3/uL (140-400) Neutrophils (%) (Auto) 77 % (31-73) H Lymphocytes (%) (Auto) 13 % (24-48) L Monocytes (%) (Auto) 9 % (0-9) Eosinophils (%) (Auto) 1 % (0-3) Basophils (%) (Auto) 1 % (0-3) Neutrophils # (Auto) 10.6 x10^3/uL (1.8-7.7) H Lymphocytes # (Auto) 1.8 x10^3/uL (1.0-4.8) Monocytes # (Auto) 1.3 x10^3/uL (0.0-1.1) H Eosinophils # (Auto) 0.1 x10^3/uL (0.0-0.7) Basophils # (Auto) 0.1 x10^3/uL (0.0-0.2) Heparin Anti-Xa Act, Unfractionated < 0.10 IU/mL (0.30-0.70) L Sodium Level 142 mmol/L (136-145) Potassium Level 3.8 mmol/L (3.5-5.1) Chloride Level 105 mmol/L (98-107) Carbon Dioxide Level 28 mmol/L (21-32) Anion Gap 9 (6-14) Blood Urea Nitrogen 10 mg/dL (7-20) Creatinine 0.9 mg/dL (0.6-1.0) Estimated GFR (Cockcroft-Gault) 65.2 BUN/Creatinine Ratio 11 (6-20) Glucose Level 104 mg/dL (70-99) H Calcium Level 9.0 mg/dL (8.5-10.1) Total Bilirubin 0.3 mg/dL (0.2-1.0) Aspartate Amino Transf (AST/SGOT) 37 U/L (15-37) Alkaline Phosphatase 71 U/L (46-116) Total Protein 6.7 g/dL (6.4-8.2) Albumin 2.5 g/dL (3.4-5.0) L Albumin/Globulin Ratio 0.6 (1.0-1.7) L ASSESSMENT: 1. Probable takatsubo versus SCAD of the LAD 2. HTN 3. Acute on chronic diastolic/systolic HF and possible cor pulmonale. PLAN: 1. Continue heparin gtt for 12 hours, stop there after, troponin now downtrending 2. Start plavix. 3. Continue asa, b-anthony. 4. LE DVT scan negative, lower suspicion for P.E. Consider CTA tomorrow if no changes in symptoms/hypoxia. Discussed with nursing and family. Supportive care. MIC OLSON MD May 01, 2019 10:45
[2019-05-01] MEDS ORDERED: CLOPIDOGREL BISULFATE 75 MG TABLET PO ONE (11:00)
[2019-05-01] MEDS ORDERED: FUROSEMIDE 40 MG/4 ML VIAL. IVP ONE (11:00)
[2019-05-01] MEDS: METOPROLOL TART IMMED RELEASE 25 MG TABLET. PO SCH ×2 (11:10→21:00)
[2019-05-01] MEDS: ASPIRIN ENTERIC COATED 81 MG TABLET.DR. PO SCH (11:10)
--- NOTE | 2019-05-01 11:40 | NUR ---
Pt transferred to room 208 with all belongings and mother here at time of transfer.
--- NOTE | 2019-05-01 11:47 | EKG ---
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
[2019-05-01] MEDS ORDERED: IBUPROFEN 400 MG TABLET. PO PRN (12:15)
[2019-05-01] MEDS ORDERED: LOPERAMIDE 2 MG CAPSULE PO PRN (12:15)
[2019-05-01] MEDS ORDERED: ACETAMINOPHEN 325 MG TABLET. PO PRN ×2 (12:15→16:30)
[2019-05-01] MEDS: LEVOTHYROXINE 125 MCG TABLET PO SCH (12:29)
[2019-05-01] MEDS ORDERED: ZOLPIDEM 5 MG TABLET. PO PRN (12:30)
[2019-05-01] MEDS: IV NORMAL SALINE 1000ML BAG 1,000 ML IV SCH ×2 (12:37→23:12)
[2019-05-01] MEDS: IPRATRPIUM/ALBUTEROL 0.5/2.5MG 3 ML NEBU. NEB SCH ×3 (13:00→20:11)
[2019-05-01] MEDS ORDERED: LITHIUM CARBONATE 300 MG CAPSULE PO SCH (13:00)
[2019-05-01] MEDS ORDERED: METOPROLOL TART IMMED RELEASE 25 MG TABLET. PO SCH (13:00)
[2019-05-01] MEDS ORDERED: POLYETHYLENE GLYCOL 3350 17 GM PACKET. PO SCH (13:00)
[2019-05-01] MEDS: DIVALPROEX EXTENDED RELEASE 250 MG TAB.ER.24H. PO SCH (13:37)
[2019-05-01] MEDS ORDERED: ONDANSETRON ODT 4 MG TAB.RAPDIS. PO SCH (14:00)
[2019-05-01] MEDS ORDERED: OXYBUTYNIN CHLORIDE 5 MG TABLET PO PRN (14:00)
[2019-05-01] MEDS ORDERED: LITH300T30 PO (16:29)
[2019-05-01] MEDS ORDERED: ONDANSETRON ODT 4 MG TAB.RAPDIS. PO PRN (16:45)
[2019-05-01] MEDS ORDERED: POLYETHYLENE GLYCOL 3350 17 GM PACKET. PO PRN (16:45)
[2019-05-01] MEDS: MINERAL OIL/PETROLATUM TOPICAL CREAM 113GM JAR. TP SCH (20:59)
[2019-05-01] MEDS: ZOLPIDEM 5 MG TABLET. PO SCH (20:59)
[2019-05-01] MEDS: clonazePAM 0.5 MG TABLET PO SCH (20:59)
[2019-05-01] MEDS: ATORVASTATIN CALCIUM 40 MG TABLET. PO SCH (20:59)
[2019-05-01] MEDS: OXYBUTYNIN CHLORIDE 5 MG TABLET PO SCH (21:00)
[2019-05-01] MEDS: QUEtiapine 100 MG TABLET. PO SCH (21:01)
[2019-05-01] MEDS: LITHIUM CARBONATE ER 300 MG TABLET.ER PO SCH (21:01)
[2019-05-02 02:30] VITALS: BP 171/72
[2019-05-02 03:48] LABS: BASO % 1 % (0-3); EOS # 0.2 x10^3/uL (0.0-0.7); EOS % 2 % (0-3); HEMATOCRIT 34.5 % (36.0-47.0); HEMOGLOBIN 11.3 g/dL (12.0-15.5); LYMPH # 1.6 x10^3/uL (1.0-4.8); LYMPH % 15 % (24-48); MEAN CORPUSCULAR HEMOGLOBIN 29 pg (25-35); MEAN CORPUSCULAR HGB CONC 33 g/dL (31-37); MEAN CORPUSCULAR VOLUME 88 fL (79-100); MONO % 10 % (0-9); NEUT # 7.7 x10^3/uL (1.8-7.7); NEUT % 73 % (31-73); PLATELET COUNT 219 x10^3/uL (140-400); RED BLOOD COUNT 3.95 x10^6/uL (3.50-5.40); RED CELL DISTRIBUTION WIDTH 14.6 % (11.5-14.5); WHITE BLOOD COUNT 10.5 x10^3/uL (4.0-11.0)
[2019-05-02 04:08] LABS: ALBUMIN 2.7 g/dL (3.4-5.0); ALBUMIN/GLOBULIN RATIO 0.6 (1.0-1.7); CALCIUM 9.1 mg/dL (8.5-10.1); GFR 57.8; POTASSIUM 3.3 mmol/L (3.5-5.1); TOTAL BILIRUBIN 0.2 mg/dL (0.2-1.0); TOTAL PROTEIN 7.1 g/dL (6.4-8.2)
[2019-05-02] MEDS: LEVOTHYROXINE 125 MCG TABLET PO SCH (05:26)
[2019-05-02 07:00] VITALS: BP 123/70
[2019-05-02] MEDS: IPRATRPIUM/ALBUTEROL 0.5/2.5MG 3 ML NEBU. NEB SCH ×4 (08:28→19:34)
[2019-05-02] MEDS ORDERED: PALIPERIDONE PO SCH (09:00)
[2019-05-02] MEDS: clonazePAM 0.5 MG TABLET PO SCH ×2 (09:47→20:52)
[2019-05-02] MEDS: DIVALPROEX EXTENDED RELEASE 250 MG TAB.ER.24H. PO SCH (09:47)
[2019-05-02] MEDS: ASPIRIN ENTERIC COATED 81 MG TABLET.DR. PO SCH (09:48)
[2019-05-02] MEDS: CLOPIDOGREL BISULFATE 75 MG TABLET PO SCH (09:48)
[2019-05-02] MEDS: METOPROLOL TART IMMED RELEASE 25 MG TABLET. PO SCH ×2 (09:48→20:53)
[2019-05-02] MEDS: LITHIUM CARBONATE ER 300 MG TABLET.ER PO SCH ×2 (09:49→20:52)
[2019-05-02] MEDS: OXYBUTYNIN CHLORIDE 5 MG TABLET PO SCH ×2 (09:49→20:52)
[2019-05-02 10:37] VITALS: BP 135/71
--- NOTE | 2019-05-02 12:33 | PDOC ---
JONO BRASHER CABINET MOUNTER 05/02/19 1233: CARDIO Progress Notes Date and Time Date of Service 05/02/19 Time of Evaluation 1210 Subjective Subjective: No Chest Pain, No Palpitations, Other (breathing better today) Vitals Vitals Vital Signs Date Time Temp Pulse Resp B/P (MAP) Pulse Ox O2 Delivery O2 Flow Rate FiO2 05/02/19 12:15 91 Room Air 05/02/19 10:37 98.2 72 18 135/71 (92) 98.2 05/02/19 02:35 2.0 Weight Weight [ ] Input and Output Intake and Output Intake and Output 05/02/19 06:59 Intake Total 2420 ml Output Total 1552 ml Balance 868 ml Intake Oral 1520 ml IV Total 900 ml Output Urine Total 1550 ml Stool Total 2 ml # Voids 2 Laboratory Labs Laboratory Tests Test 05/02/19 03:25 White Blood Count 10.5 x10^3/uL (4.0-11.0) Red Blood Count 3.95 x10^6/uL (3.50-5.40) Hemoglobin 11.3 g/dL (12.0-15.5) Hematocrit 34.5 % (36.0-47.0) Mean Corpuscular Volume 88 fL (79-100) Mean Corpuscular Hemoglobin 29 pg (25-35) Mean Corpuscular Hemoglobin Concent 33 g/dL (31-37) Red Cell Distribution Width 14.6 % (11.5-14.5) Platelet Count 219 x10^3/uL (140-400) Neutrophils (%) (Auto) 73 % (31-73) Lymphocytes (%) (Auto) 15 % (24-48) Monocytes (%) (Auto) 10 % (0-9) Eosinophils (%) (Auto) 2 % (0-3) Basophils (%) (Auto) 1 % (0-3) Neutrophils # (Auto) 7.7 x10^3/uL (1.8-7.7) Lymphocytes # (Auto) 1.6 x10^3/uL (1.0-4.8) Monocytes # (Auto) 1.0 x10^3/uL (0.0-1.1) Eosinophils # (Auto) 0.2 x10^3/uL (0.0-0.7) Basophils # (Auto) 0.0 x10^3/uL (0.0-0.2) Sodium Level 142 mmol/L (136-145) Potassium Level 3.3 mmol/L (3.5-5.1) Chloride Level 104 mmol/L (98-107) Carbon Dioxide Level 29 mmol/L (21-32) Anion Gap 9 (6-14) Blood Urea Nitrogen 9 mg/dL (7-20) Creatinine 1.0 mg/dL (0.6-1.0) Estimated GFR (Cockcroft-Gault) 57.8 BUN/Creatinine Ratio 9 (6-20) Glucose Level 126 mg/dL (70-99) Calcium Level 9.1 mg/dL (8.5-10.1) Total Bilirubin 0.2 mg/dL (0.2-1.0) Aspartate Amino Transf (AST/SGOT) 57 U/L (15-37) Alanine Aminotransferase (ALT/SGPT) 61 U/L (14-59) Alkaline Phosphatase 71 U/L (46-116) Total Protein 7.1 g/dL (6.4-8.2) Albumin 2.7 g/dL (3.4-5.0) Albumin/Globulin Ratio 0.6 (1.0-1.7) Physical Exam HEENT: Neck Supple W Full Motion Chest: Symmetric LUNGS: Clear to Auscultation Heart: S1S2 Abdomen: Soft N/T Extremities: No Edema Neurology: alert, follow commands Assessment Assessment 1. Acute hypoxic respiratory failure, multifactorial. Better compensated 2. NSTEMI; troponin trended downward. 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 3. Acute on chronic diastolic/systolic CHF, possible cor pulmonale 4. 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 Hypertension; controlled Recommendations Echocardiogram Secondary prevention including DAPT with ASA, Plavix. BB therapy HF optimization Add lisinopril MIC OLSON MD 05/03/19 0909: CARDIO Progress Notes Plan Plan Late entry for 05/02/2019 Pt. seen and examined. 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 Supportive care. Patient overall improving. JONO BRASHER APRN May 02, 2019 12:33 MIC OLSON MD May 03, 2019 09:09
--- NOTE | 2019-05-02 12:40 | PDOC ---
[facility] [facility] PROGRESS NOTE Chief Complaint Chief Complaint Chest pain History of Present Illness History of Present Illness 05/01/19 Pt seen and examined Pt had an NSTEMI and was in the slab polisher yesterday with likely coronary artery dissection Troponin peak 12.2 Pt was quite talkative today and seems to be at her baseline DW RN and pt's mother Vitals/I&O Vitals/I&O: Vital Signs Date Time Temp Pulse Resp B/P (MAP) Pulse Ox O2 Delivery O2 Flow Rate FiO2 05/02/19 12:15 91 Room Air 05/02/19 10:37 98.2 72 18 135/71 (92) 98.2 05/02/19 02:35 2.0 I & O 05/01/19 05/01/19 05/02/19 15:00 23:00 07:00 Intake Total 600 ml 1820 ml Output Total 852 ml 300 ml 400 ml Balance -252 ml -300 ml 1420 ml Physical Exam General: Alert, No acute distress Heart: Regular rate Lungs: Clear, Other Abdomen: Normal bowel sounds Extremities: No clubbing, No cyanosis Skin: No rashes Labs Labs: Laboratory Tests Test 05/02/19 03:25 White Blood Count 10.5 x10^3/uL (4.0-11.0) Red Blood Count 3.95 x10^6/uL (3.50-5.40) Hemoglobin 11.3 g/dL (12.0-15.5) Hematocrit 34.5 % (36.0-47.0) Mean Corpuscular Volume 88 fL (79-100) Mean Corpuscular Hemoglobin 29 pg (25-35) Mean Corpuscular Hemoglobin Concent 33 g/dL (31-37) Red Cell Distribution Width 14.6 % (11.5-14.5) Platelet Count 219 x10^3/uL (140-400) Neutrophils (%) (Auto) 73 % (31-73) Lymphocytes (%) (Auto) 15 % (24-48) Monocytes (%) (Auto) 10 % (0-9) Eosinophils (%) (Auto) 2 % (0-3) Basophils (%) (Auto) 1 % (0-3) Neutrophils # (Auto) 7.7 x10^3/uL (1.8-7.7) Lymphocytes # (Auto) 1.6 x10^3/uL (1.0-4.8) Monocytes # (Auto) 1.0 x10^3/uL (0.0-1.1) Eosinophils # (Auto) 0.2 x10^3/uL (0.0-0.7) Basophils # (Auto) 0.0 x10^3/uL (0.0-0.2) Sodium Level 142 mmol/L (136-145) Potassium Level 3.3 mmol/L (3.5-5.1) Chloride Level 104 mmol/L (98-107) Carbon Dioxide Level 29 mmol/L (21-32) Anion Gap 9 (6-14) Blood Urea Nitrogen 9 mg/dL (7-20) Creatinine 1.0 mg/dL (0.6-1.0) Estimated GFR (Cockcroft-Gault) 57.8 BUN/Creatinine Ratio 9 (6-20) Glucose Level 126 mg/dL (70-99) Calcium Level 9.1 mg/dL (8.5-10.1) Total Bilirubin 0.2 mg/dL (0.2-1.0) Aspartate Amino Transf (AST/SGOT) 57 U/L (15-37) Alanine Aminotransferase (ALT/SGPT) 61 U/L (14-59) Alkaline Phosphatase 71 U/L (46-116) Total Protein 7.1 g/dL (6.4-8.2) Albumin 2.7 g/dL (3.4-5.0) Albumin/Globulin Ratio 0.6 (1.0-1.7) Review of Systems Review of Systems: Denied SOB and Weakness Assessment and Plan Assessmemt and Plan Problems Medical Problems: (1) NSTEMI (non-ST elevated myocardial infarction) Status: Acute Plan: 1. Acute AMA MA with max troponin of 12 2. Clean cath. 3. Discharge Comment Review of Relevant I have reviewed the following items bushra (where applicable) has been applied. Medications: Current Medications Medications (Trade) Dose Ordered Sig/Olu Route PRN Reason Start Time Stop Time Status Last Admin Dose Admin Clopidogrel Bisulfate (Plavix) 75 mg DAILYWBKFT PO 05/02/19 08:00 05/02/19 09:48 Diltiazem HCl (Cardizem 24hr Cd) 240 mg DAILY PO 05/01/19 13:00 05/02/19 09:48 Divalproex Sodium (Depakote Er) 750 mg DAILY PO 05/01/19 13:00 05/02/19 09:47 Albuterol/ Ipratropium (Duoneb) 3 ml RTQID NEB 05/01/19 13:00 05/02/19 12:15 Levothyroxine Sodium (Synthroid) 125 mcg DAILY06 PO 05/01/19 13:00 05/02/19 05:26 Multi-Ingred Cream/Lotion/Oil/ Oint (Hydrocerin Cream) 1 nancy HS TP 05/01/19 21:00 05/01/19 20:59 Clonazepam (KlonoPIN) 2 mg BID PO 05/01/19 21:00 05/02/19 09:47 [place] Carbonate 300 mg BID PO 05/01/19 13:00 05/01/19 16:30 DC 05/01/19 13:37 Ondansetron HCl (Zofran Odt) 4 mg Q8HRS PO 05/01/19 14:00 05/01/19 16:32 DC 05/01/19 13:37 Quetiapine Fumarate (SEROquel) 400 mg QHS PO 05/01/19 21:00 05/01/19 21:01 Zolpidem Tartrate (Ambien) 5 mg QHS PO 05/01/19 21:00 05/01/19 20:59 [place] Carbonate (Lithobid) 300 mg BID PO 05/01/19 21:00 05/02/19 09:49 Oxybutynin Chloride (Ditropan) 2.5 mg BID PO 05/01/19 21:00 05/02/19 09:49 JUAN ANTONIO SANDY III DO May 02, 2019 12:40
--- NOTE | 2019-05-02 12:44 | SNU/HH DC ---
DISCHARGE WITH HOME HEALTH DISCHARGE INFORMATION: Final Diagnosis: Problems Medical Problems: (1) NSTEMI (non-ST elevated myocardial infarction) Status: Acute Condition on Discharge: Stable CODE STATUS: Code Status: Full HOME HEALTH: Face to Face: I certify this patient is under my care and that I, or a nurse practitioner or physician's mobile unit assistant working with me, had a face to face encounter that meets the physician face to face encounter requirements with this patient on []. Medical Complications: Other (recent heart attack) RN For Eval/Treatment: Yes Physical Therapy For: Evalulation/Treatment Occupational Therapy For: Evaluation/Treatment Speech Language Pathology For: Evaluation/Treatment Home Health Aide For: Self-care SENIOR C WEB DEVELOPER For: Community Resources Pt Meets Homebound Status: Poor coordination w/ amb. POST DISCHARGE ORDERS: Activity Instructions for Disc: No restrictions DIET AFTER DISCHARGE: Cardiac TREATMENT/EQUIPMENT ORDERS: Adaptive Equipment Issued: None CERTIFICATION STATEMENT: Certification Statement: Certification Statement: Based on the above finding, I certify that this patient is confined to the home and needs intermittent retirement care, physical therapy and/or speech therapy, or continues to need occupational therapy.~ This patient is under my care, and I have initiated the establishment of the plan of care.~ This patient will be followed by myself or a community physician who will periodically review the plan of care. Home Meds Reported Medications [place] Carbonate (LITHIUM CARBONATE) 300 Mg Tablet.er, 300 MG PO BID, TAB.SR 05/01/19 Diltiazem Hcl (CARDIZEM CD) 240 Mg Cap.er.24h, 1 CAP PO DAILY for heart failure, #30 CAP 5 Refills 04/30/19 Acetaminophen (TYLENOL) 325 Mg Tablet, 650 MG PO PRN Q6HRS PRN for PAIN for 30 Days, TAB 04/30/19 Ondansetron Hcl (ZOFRAN) 4 Mg Tablet, 1 TAB PO Q8HRS PRN for NAUSEA for 30 Days, #90 TAB 04/30/19 Polyethylene Glycol 3350 (MIRALAX) 17 Gm Powd.pack, 1 PACKET PO DAILY PRN for CONSTIPATION for 30 Days, #30 PACKET 0 Refills dissolve in water 04/30/19 Loperamide Hcl (ANTI-DIARRHEAL) 2 Mg Capsule, 2 MG PO PRN Q1HR PRN for DIARRHEA for 30 Days, CAP 04/30/19 Ibuprofen (IBUPROFEN) 400 Mg Tablet, 400 MG PO PRN Q6HRS PRN for INFLAMMATION for 30 Days, TAB 04/30/19 Ipratropium/Albuterol Sulfate (DUONEB 0.5-3(2.5) MG/3 ML) 3 Ml Ampul.neb, 3 ML NEB QID PRN for SHORTNESS OF BREATH for 30 Days, #120 EACH 04/30/19 Divalproex Sodium (DIVALPROEX SODIUM ER) 500 Mg Tab.er.24h, 750 MG PO QHS for Bipolar Disorder for 30 Days, #45 TAB.SR 04/30/19 Levothyroxine Sodium (LEVOTHYROXINE SODIUM) 125 Mcg Tablet, 125 MCG PO DAILYAC for THYROID SUPPLEMENT, #30 TAB 0 Refills 04/30/19 Oxybutynin Chloride (DITROPAN XL) 5 Mg Tab.er.24, 5 MG PO QHS, #30 TAB.SR 04/30/19 Metoprolol Tartrate (METOPROLOL TARTRATE) 25 Mg Tablet, 1 TAB PO BID, #180 TAB 1 Refill 10/12/15 Quetiapine Fumarate (SEROQUEL) 400 Mg Tablet, 1 TAB PO QHS, #30 TAB 1 Refill 09/24/15 Paliperidone (INVEGA) 6 Mg Tab.er.24, 2 TAB PO DAILY, #30 TAB 2 Refills 09/24/15 Mineral Oil/Petrolatum,White (EUCERIN CREME ) 120 Gm Cream..g., 1 ELISA TP HS PRN for SKIN BREAKDOWN, #1 TUBE 09/24/15 Clonazepam (CLONAZEPAM) 2 Mg Tablet, 1 TAB PO BID, #90 TAB 09/24/15 Zolpidem Tartrate (AMBIEN) 10 Mg Tablet, 10 MG PO QHS, TAB 0 Refills 09/24/15 Discontinued Reported Medications [place] Carbonate (LITHIUM CARBONATE) 300 Mg Tablet, 1 TAB PO BID for manic episode w/psychosis for 30 Days, #60 TAB 1 Refill 04/30/19 Diltiazem Hcl (CARDIZEM CD) 180 Mg Cap.er.24h, 1 CAP PO DAILY for heart failure, #90 CAP 1 Refill 04/30/19 Diltiazem Hcl (DILTIAZEM 24HR CD) 120 Mg Cap.er.24h, 1 CAP PO DAILY, #90 CAP 1 Refill 10/12/15 Guaifenesin (TUSSIN CHEST CONGESTION) 100 Mg/5 Ml Liquid, 100 MG PO PRN Q4HRS PRN for COUGH, LIQUID 09/24/15 Quetiapine Fumarate (SEROQUEL) 300 Mg Tablet, 1 TAB PO QHS, #30 TAB 1 Refill 09/24/15 Nicotine Polacrilex (NICOTINE GUM) 4 Mg Gum, 4 MG BC PRN PRN for SMOKING CESSATION 09/24/15 Levothyroxine Sodium (LEVOTHYROXINE SODIUM) 100 Mcg Tablet, 1 TAB PO DAILY, #90 TAB 1 Refill 09/24/15 JUAN ANTONIO SANDY III DO May 02, 2019 12:44
[2019-05-02] MEDS ORDERED: POTASSIUM CHLORIDE 20 MEQ TABLET.ER. PO ONE (12:45)
--- NOTE | 2019-05-02 14:05 | NUR ---
SS following for discharge planning. SS reviewed pt chart. Pt is from [facility], ; fax [phone]. Discharge orders on the chart for return to [facility]. SS phoned and faxed discharge orders and clinical to [facility]. Pt will discharge today and return to [facility] at 1530. [facility] to provide transport. Pt, pt's family, and pt's RN notified.
[2019-05-02 14:39] VITALS: BP 134/73
--- NOTE | 2019-05-02 14:58 | CARD ---
MR#: [id number] Date of Study: 04/30/2019 Ordering Physician: MIC OLSON, Referring Physician: MIC OLSON, Tech: RT Florencia (R) SHAGGY APPROVED REPORT Technologist: RT Florencia (R) SHAGGY Nurse: Olga Lidia Humphrey RN Procedure(s) performed: Fluoro Time: 2.0 min Dose: 50 Gycm2 Mod Sedation: 40 mins Contrast: 58ml LHC, Coronary angiography, RHC HISTORY : The patient is a 53 year-old female with a history of . INDICATION The indication(s) include : non-STEMI . PROCEDURE NARRATIVE INFORMED CONSENT: After explaining the risks and benefits of the procedure and alternatives, informed consent was obtained. The patient was brought electively to the cardiac catheterization lab. A timeout was performed confi rming the patient's name, date of , procedure, and site of procedure. All necessary personnel w ere wearing the appropriate protective equipment and radiation monitor devices. (See nursing notes for medications administered). ACCESS: The right wrist was sterilely prepped and draped in the usual fashion. The right wrist was infiltrat ed with 1 mL of 2% lidocaine for subcutaneous anesthesia. A 6 [place] Terumo glide sheath was inserte d into the right radial artery without difficulty. Right IJ access was obtained via ultrasound guidance. A 5Fr sheath was placed in the RIJ w/o difficul ty. CORONARY ANGIOGRAPHY: Right and left coronary angiography was performed using a 6Fr TIG 4.0 catheter. Left ventricular en d diastolic pressure was obtained with a pigtail catheter and pullback was performed after left ventr iculography. All catheter exchanges and advancements were performed over a guidewire. RHC: Due to persistent dyspnea and hypoxia with concern for cardiogenic shock, a RHC was performed. CLOSURE: At case completion the right radial sheath was removed and a Terumo radial band was applied with 13 m l of air. The right IJ sheath was sutured to the skin. COMPLICATIONS: The patient tolerated the procedure well and there were no immediate complications. FINDINGS: HEMODYNAMICS: LVEDP 22 mm Hg No gradient on LV to aortic pullback. AO: 128/78 LEFT VENTRICULOGRAM: EF40 % *Diffuse global hypokinesis with the distal 1/3 of the LV being severely hypokinetic. CORONARY ANGIOGRAPHY: LM is a large caliber vessel with normal angiographic appearance. LAD is a large caliber vessel with severe rapid tapering of the mid to distal LAD, likely due to SCAD . D1s is a moderate caliber vessel with normal angiographic apeparance. LCx is a moderate caliber non-dominant vessel with normal angiographic appearance. OM1 is a moderate caliber vessel with normal angiographic appearance. RCA is a large caliber dominant vessel with normal angiographic appearance. RPDA and RPL are moderate caliber vessels with normal angiographic appearance. RHC findings: PCWP: 22 mm Hg PA: 40/15 RV: 42/12 RA: 13 PA sat: 62%. Rradial artery sat: 92% Conclusion 1. Acute LV pressure overload, LVEDP 22 mm Hg 2. 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 3. Mildly elevated right sided filling pressures, with near normal C.O. Recommendations Aggressive Medical Therapy Signed by : Mic Olson, Electronically Approved : 05/02/2019 14:57:53
--- NOTE | 2019-05-02 17:15 | NUR ---
Patient unable to dc today pending ECHO per cardiology. Advised patient and mother at bedside that once ECHO is done and read, patient should be able to return to facility. Both verbalized understanding.
[2019-05-02 19:20] VITALS: BP 111/67
[2019-05-02] MEDS: QUEtiapine 100 MG TABLET. PO SCH (20:52)
[2019-05-02] MEDS: ZOLPIDEM 5 MG TABLET. PO SCH (20:52)
[2019-05-02] MEDS: ATORVASTATIN CALCIUM 40 MG TABLET. PO SCH (20:52)
[2019-05-02] MEDS: MINERAL OIL/PETROLATUM TOPICAL CREAM 113GM JAR. TP SCH (20:53)
[2019-05-02 22:35] VITALS: BP 125/67
[2019-05-03 03:25] VITALS: BP 129/75
[2019-05-03 04:54] LABS: BASO # 0.1 x10^3/uL (0.0-0.2); BASO % 1 % (0-3); EOS # 0.3 x10^3/uL (0.0-0.7); EOS % 3 % (0-3); HEMATOCRIT 32.5 % (36.0-47.0); HEMOGLOBIN 10.7 g/dL (12.0-15.5); LYMPH # 1.6 x10^3/uL (1.0-4.8); LYMPH % 16 % (24-48); MEAN CORPUSCULAR HEMOGLOBIN 28 pg (25-35); MEAN CORPUSCULAR HGB CONC 33 g/dL (31-37); MEAN CORPUSCULAR VOLUME 87 fL (79-100); MONO # 1.1 x10^3/uL (0.0-1.1); MONO % 11 % (0-9); NEUT # 7.1 x10^3/uL (1.8-7.7); NEUT % 69 % (31-73); PLATELET COUNT 233 x10^3/uL (140-400); RED BLOOD COUNT 3.76 x10^6/uL (3.50-5.40); RED CELL DISTRIBUTION WIDTH 14.7 % (11.5-14.5); WHITE BLOOD COUNT 10.2 x10^3/uL (4.0-11.0)
[2019-05-03] MEDS: LEVOTHYROXINE 125 MCG TABLET PO SCH (05:07)
[2019-05-03 05:16] LABS: ALBUMIN 2.4 g/dL (3.4-5.0); ALBUMIN/GLOBULIN RATIO 0.6 (1.0-1.7); CALCIUM 8.9 mg/dL (8.5-10.1); CREATININE 0.9 mg/dL (0.6-1.0); GFR 65.2; TOTAL BILIRUBIN 0.2 mg/dL (0.2-1.0); TOTAL PROTEIN 6.4 g/dL (6.4-8.2)
[2019-05-03 07:00] VITALS: BP 128/62
--- NOTE | 2019-05-03 07:58 | SNU/HH DC ---
DISCHARGE ORDERS DISCHARGE INFORMATION: DISCHARGE DATE: May 03, 2019 FINAL DIAGNOSIS Problems Medical Problems: (1) NSTEMI (non-ST elevated myocardial infarction) Status: Acute CONDITION ON DISCHARGE: Stable CODE STATUS: Code Status: Full POST DISCHARGE ORDERS: ACTIVITY ORDERS: No restrictions DIET AFTER DISCHARGE: Cardiac CHECKS AFTER DISCHARGE: CHECKS AFTER DISCHARGE: Check blood press - daily TREATMENT/EQUIPMENT ORDERS: ADAPTIVE EQUIPMENT NEEDED: None Physical Therapy For: Evalulation/Treatment Occupational Therapy For: Evaluation/Treatment Speech Language Pathology For: Evaluation/Treatment DISCHARGE MEDICATIONS: Home Meds Active Scripts Lisinopril (LISINOPRIL) 5 Mg Tablet, 5 MG PO DAILY for CAD for 30 Days, #30 TAB Prov:RANDOLPH HAGAN MD 05/03/19 Atorvastatin Calcium (ATORVASTATIN CALCIUM) 40 Mg Tablet, 40 MG PO QHS for HLD for 30 Days, #30 TAB Prov:RANDOLPH HAGAN MD 05/03/19 Clopidogrel Bisulfate (CLOPIDOGREL) 75 Mg Tablet, 75 MG PO DAILYWBKFT for CAD for 30 Days, #30 TAB Prov:RANDOLPH HAGAN MD 05/03/19 Metoprolol Tartrate (METOPROLOL TARTRATE) 25 Mg Tablet, 0.5 TAB PO BID for CAD for 30 Days, #30 TAB 1 Refill Prov:RANDOLPH HAGAN MD 05/03/19 Reported Medications [place] Carbonate (LITHIUM CARBONATE) 300 Mg Tablet.er, 300 MG PO BID, TAB.SR 05/01/19 Diltiazem Hcl (CARDIZEM CD) 240 Mg Cap.er.24h, 1 CAP PO DAILY for heart failure, #30 CAP 5 Refills 04/30/19 Acetaminophen (TYLENOL) 325 Mg Tablet, 650 MG PO PRN Q6HRS PRN for PAIN for 30 Days, TAB 04/30/19 Ondansetron Hcl (ZOFRAN) 4 Mg Tablet, 1 TAB PO Q8HRS PRN for NAUSEA for 30 Days, #90 TAB 04/30/19 Polyethylene Glycol 3350 (MIRALAX) 17 Gm Powd.pack, 1 PACKET PO DAILY PRN for CONSTIPATION for 30 Days, #30 PACKET 0 Refills dissolve in water 04/30/19 Loperamide Hcl (ANTI-DIARRHEAL) 2 Mg Capsule, 2 MG PO PRN Q1HR PRN for DIARRHEA for 30 Days, CAP 04/30/19 Ibuprofen (IBUPROFEN) 400 Mg Tablet, 400 MG PO PRN Q6HRS PRN for INFLAMMATION for 30 Days, TAB 04/30/19 Ipratropium/Albuterol Sulfate (DUONEB 0.5-3(2.5) MG/3 ML) 3 Ml Ampul.neb, 3 ML NEB QID PRN for SHORTNESS OF BREATH for 30 Days, #120 EACH 04/30/19 Divalproex Sodium (DIVALPROEX SODIUM ER) 500 Mg Tab.er.24h, 750 MG PO QHS for Bipolar Disorder for 30 Days, #45 TAB.SR 04/30/19 Levothyroxine Sodium (LEVOTHYROXINE SODIUM) 125 Mcg Tablet, 125 MCG PO DAILYAC for THYROID SUPPLEMENT, #30 TAB 0 Refills 04/30/19 Oxybutynin Chloride (DITROPAN XL) 5 Mg Tab.er.24, 5 MG PO QHS, #30 TAB.SR 04/30/19 Quetiapine Fumarate (SEROQUEL) 400 Mg Tablet, 1 TAB PO QHS, #30 TAB 1 Refill 09/24/15 Paliperidone (INVEGA) 6 Mg Tab.er.24, 2 TAB PO DAILY, #30 TAB 2 Refills 09/24/15 Mineral Oil/Petrolatum,White (EUCERIN CREME ) 120 Gm Cream..g., 1 ELISA TP HS PRN for SKIN BREAKDOWN, #1 TUBE 09/24/15 Clonazepam (CLONAZEPAM) 2 Mg Tablet, 1 TAB PO BID, #90 TAB 09/24/15 Zolpidem Tartrate (AMBIEN) 10 Mg Tablet, 10 MG PO QHS, TAB 0 Refills 09/24/15 Discontinued Reported Medications [place] Carbonate (LITHIUM CARBONATE) 300 Mg Tablet, 1 TAB PO BID for manic episode w/psychosis for 30 Days, #60 TAB 1 Refill 04/30/19 Diltiazem Hcl (CARDIZEM CD) 180 Mg Cap.er.24h, 1 CAP PO DAILY for heart failure, #90 CAP 1 Refill 04/30/19 Diltiazem Hcl (DILTIAZEM 24HR CD) 120 Mg Cap.er.24h, 1 CAP PO DAILY, #90 CAP 1 Refill 10/12/15 Guaifenesin (TUSSIN CHEST CONGESTION) 100 Mg/5 Ml Liquid, 100 MG PO PRN Q4HRS PRN for COUGH, LIQUID 09/24/15 Quetiapine Fumarate (SEROQUEL) 300 Mg Tablet, 1 TAB PO QHS, #30 TAB 1 Refill 09/24/15 Nicotine Polacrilex (NICOTINE GUM) 4 Mg Gum, 4 MG BC PRN PRN for SMOKING CESSATION 09/24/15 Levothyroxine Sodium (LEVOTHYROXINE SODIUM) 100 Mcg Tablet, 1 TAB PO DAILY, #90 TAB 1 Refill 09/24/15 RANDOLPH HAGAN MD May 03, 2019 07:58
--- NOTE | 2019-05-03 08:00 | PDOC ---
PROGRESS NOTES Chief Complaint Chief Complaint Chest pain Acute hypoxic respiratory failure Bipolar disorder Anxiety hypothyroidism chronic diastolic CHF hypertension insomnia urinary incontinence History of Present Illness History of Present Illness Ms Chadwick is a 53yo F w/ PMHx bipolar disorder [facility] who is admitted for shortness of breath found with an NSTEMI and went to label tacker 04/30 with likely coronary artery dissection vs stress induced cardiomyopathy found. Troponin peak 12.2 Pt was quite talkative today and seems to be at her baseline. Is awaiting an echocardiogram currently. No pain complaints. Mild shortness of breath DW RN and pt's mother Vitals Vitals Vital Signs Date Time Temp Pulse Resp B/P (MAP) Pulse Ox O2 Delivery O2 Flow Rate FiO2 05/03/19 03:35 93 Nasal Cannula 2.0 05/03/19 03:25 98.9 67 20 129/75 (93) 98.9 Physical Exam General: Alert, No acute distress Heart: Regular rate Lungs: Clear, Other Abdomen: Normal bowel sounds Extremities: No clubbing, No cyanosis Skin: No rashes Labs LABS Laboratory Tests Test 05/03/19 04:40 White Blood Count 10.2 x10^3/uL (4.0-11.0) Red Blood Count 3.76 x10^6/uL (3.50-5.40) Hemoglobin 10.7 g/dL (12.0-15.5) Hematocrit 32.5 % (36.0-47.0) Mean Corpuscular Volume 87 fL (79-100) Mean Corpuscular Hemoglobin 28 pg (25-35) Mean Corpuscular Hemoglobin Concent 33 g/dL (31-37) Red Cell Distribution Width 14.7 % (11.5-14.5) Platelet Count 233 x10^3/uL (140-400) Neutrophils (%) (Auto) 69 % (31-73) Lymphocytes (%) (Auto) 16 % (24-48) Monocytes (%) (Auto) 11 % (0-9) Eosinophils (%) (Auto) 3 % (0-3) Basophils (%) (Auto) 1 % (0-3) Neutrophils # (Auto) 7.1 x10^3/uL (1.8-7.7) Lymphocytes # (Auto) 1.6 x10^3/uL (1.0-4.8) Monocytes # (Auto) 1.1 x10^3/uL (0.0-1.1) Eosinophils # (Auto) 0.3 x10^3/uL (0.0-0.7) Basophils # (Auto) 0.1 x10^3/uL (0.0-0.2) Sodium Level 144 mmol/L (136-145) Potassium Level 4.0 mmol/L (3.5-5.1) Chloride Level 108 mmol/L (98-107) Carbon Dioxide Level 28 mmol/L (21-32) Anion Gap 8 (6-14) Blood Urea Nitrogen 7 mg/dL (7-20) Creatinine 0.9 mg/dL (0.6-1.0) Estimated GFR (Cockcroft-Gault) 65.2 BUN/Creatinine Ratio 8 (6-20) Glucose Level 113 mg/dL (70-99) Calcium Level 8.9 mg/dL (8.5-10.1) Total Bilirubin 0.2 mg/dL (0.2-1.0) Aspartate Amino Transf (AST/SGOT) 29 U/L (15-37) Alanine Aminotransferase (ALT/SGPT) 51 U/L (14-59) Alkaline Phosphatase 59 U/L (46-116) Total Protein 6.4 g/dL (6.4-8.2) Albumin 2.4 g/dL (3.4-5.0) Albumin/Globulin Ratio 0.6 (1.0-1.7) Assessment and Plan Assessmemt and Plan Problems Medical Problems: (1) NSTEMI (non-ST elevated myocardial infarction) Status: Acute Comment Review of Relevant I have reviewed the following items bushra (where applicable) has been applied. Labs Laboratory Tests Test 05/01/19 09:53 05/02/19 03:25 05/03/19 04:40 Heparin Anti-Xa Act, Unfractionated < 0.10 IU/mL (0.30-0.70) White Blood Count 10.5 x10^3/uL (4.0-11.0) 10.2 x10^3/uL (4.0-11.0) Red Blood Count 3.95 x10^6/uL (3.50-5.40) 3.76 x10^6/uL (3.50-5.40) Hemoglobin 11.3 g/dL (12.0-15.5) 10.7 g/dL (12.0-15.5) Hematocrit 34.5 % (36.0-47.0) 32.5 % (36.0-47.0) Mean Corpuscular Volume 88 fL (79-100) 87 fL (79-100) Mean Corpuscular Hemoglobin 29 pg (25-35) 28 pg (25-35) Mean Corpuscular Hemoglobin Concent 33 g/dL (31-37) 33 g/dL (31-37) Red Cell Distribution Width 14.6 % (11.5-14.5) 14.7 % (11.5-14.5) Platelet Count 219 x10^3/uL (140-400) 233 x10^3/uL (140-400) Neutrophils (%) (Auto) 73 % (31-73) 69 % (31-73) Lymphocytes (%) (Auto) 15 % (24-48) 16 % (24-48) Monocytes (%) (Auto) 10 % (0-9) 11 % (0-9) Eosinophils (%) (Auto) 2 % (0-3) 3 % (0-3) Basophils (%) (Auto) 1 % (0-3) 1 % (0-3) Neutrophils # (Auto) 7.7 x10^3/uL (1.8-7.7) 7.1 x10^3/uL (1.8-7.7) Lymphocytes # (Auto) 1.6 x10^3/uL (1.0-4.8) 1.6 x10^3/uL (1.0-4.8) Monocytes # (Auto) 1.0 x10^3/uL (0.0-1.1) 1.1 x10^3/uL (0.0-1.1) Eosinophils # (Auto) 0.2 x10^3/uL (0.0-0.7) 0.3 x10^3/uL (0.0-0.7) Basophils # (Auto) 0.0 x10^3/uL (0.0-0.2) 0.1 x10^3/uL (0.0-0.2) Sodium Level 142 mmol/L (136-145) 144 mmol/L (136-145) Potassium Level 3.3 mmol/L (3.5-5.1) 4.0 mmol/L (3.5-5.1) Chloride Level 104 mmol/L (98-107) 108 mmol/L (98-107) Carbon Dioxide Level 29 mmol/L (21-32) 28 mmol/L (21-32) Anion Gap 9 (6-14) 8 (6-14) Blood Urea Nitrogen 9 mg/dL (7-20) 7 mg/dL (7-20) Creatinine 1.0 mg/dL (0.6-1.0) 0.9 mg/dL (0.6-1.0) Estimated GFR (Cockcroft-Gault) 57.8 65.2 BUN/Creatinine Ratio 9 (6-20) 8 (6-20) Glucose Level 126 mg/dL (70-99) 113 mg/dL (70-99) Calcium Level 9.1 mg/dL (8.5-10.1) 8.9 mg/dL (8.5-10.1) Magnesium Level 2.2 mg/dL (1.8-2.4) Total Bilirubin 0.2 mg/dL (0.2-1.0) 0.2 mg/dL (0.2-1.0) Aspartate Amino Transf (AST/SGOT) 57 U/L (15-37) 29 U/L (15-37) Alanine Aminotransferase (ALT/SGPT) 61 U/L (14-59) 51 U/L (14-59) Alkaline Phosphatase 71 U/L (46-116) 59 U/L (46-116) Total Protein 7.1 g/dL (6.4-8.2) 6.4 g/dL (6.4-8.2) Albumin 2.7 g/dL (3.4-5.0) 2.4 g/dL (3.4-5.0) Albumin/Globulin Ratio 0.6 (1.0-1.7) 0.6 (1.0-1.7) Laboratory Tests Test 05/03/19 04:40 White Blood Count 10.2 x10^3/uL (4.0-11.0) Red Blood Count 3.76 x10^6/uL (3.50-5.40) Hemoglobin 10.7 g/dL (12.0-15.5) Hematocrit 32.5 % (36.0-47.0) Mean Corpuscular Volume 87 fL (79-100) Mean Corpuscular Hemoglobin 28 pg (25-35) Mean Corpuscular Hemoglobin Concent 33 g/dL (31-37) Red Cell Distribution Width 14.7 % (11.5-14.5) Platelet Count 233 x10^3/uL (140-400) Neutrophils (%) (Auto) 69 % (31-73) Lymphocytes (%) (Auto) 16 % (24-48) Monocytes (%) (Auto) 11 % (0-9) Eosinophils (%) (Auto) 3 % (0-3) Basophils (%) (Auto) 1 % (0-3) Neutrophils # (Auto) 7.1 x10^3/uL (1.8-7.7) Lymphocytes # (Auto) 1.6 x10^3/uL (1.0-4.8) Monocytes # (Auto) 1.1 x10^3/uL (0.0-1.1) Eosinophils # (Auto) 0.3 x10^3/uL (0.0-0.7) Basophils # (Auto) 0.1 x10^3/uL (0.0-0.2) Sodium Level 144 mmol/L (136-145) Potassium Level 4.0 mmol/L (3.5-5.1) Chloride Level 108 mmol/L (98-107) Carbon Dioxide Level 28 mmol/L (21-32) Anion Gap 8 (6-14) Blood Urea Nitrogen 7 mg/dL (7-20) Creatinine 0.9 mg/dL (0.6-1.0) Estimated GFR (Cockcroft-Gault) 65.2 BUN/Creatinine Ratio 8 (6-20) Glucose Level 113 mg/dL (70-99) Calcium Level 8.9 mg/dL (8.5-10.1) Total Bilirubin 0.2 mg/dL (0.2-1.0) Aspartate Amino Transf (AST/SGOT) 29 U/L (15-37) Alanine Aminotransferase (ALT/SGPT) 51 U/L (14-59) Alkaline Phosphatase 59 U/L (46-116) Total Protein 6.4 g/dL (6.4-8.2) Albumin 2.4 g/dL (3.4-5.0) Albumin/Globulin Ratio 0.6 (1.0-1.7) Medications Current Medications Heparin Sodium (Porcine) (Heparin Sodium) 4,000 unit 1X ONCE IV ; Start 04/30/19 at 01:00; Stop 04/30/19 at 01:01; Status DC Heparin Sodium/ Dextrose 500 ml @ 0 mls/hr CONT PRN PRN IV ANTICOAGUALATION; Start 04/30/19 at 00:45; Stop 04/30/19 at 01:58; Status DC Heparin Sodium (Porcine) (Heparin Sodium) 2,000 unit PRN Q6HRS PRN IV FOR UFH LEVEL LESS THAN 0.2; Start 04/30/19 at 00:45; Stop 04/30/19 at 01:58; Status DC Atorvastatin Calcium (Lipitor) 40 mg QHS PO Last administered on 05/02/19at 20:52; Start 04/30/19 at 21:00 Ondansetron HCl (Zofran) 4 mg PRN Q8HRS PRN IV NAUSEA/VOMITING 1ST CHOICE; Start 04/30/19 at 01:45; Stop 05/01/19 at 01:44; Status DC Morphine Sulfate (Morphine Sulfate) 2 mg PRN Q2HR PRN IV SEVERE PAIN 7-10; Start 04/30/19 at 01:45; Stop 05/01/19 at 01:44; Status DC Heparin Sodium/ Dextrose 500 ml @ 0 mls/hr CONT PRN IV CARDIOVASCULAR PROTOCOL Last administered on 05/01/19at 10:40; Start 04/30/19 at 02:00 Heparin Sodium (Porcine) (Heparin Sodium) 3,050 unit PRN Q6HRS PRN IV FOR UFH LEVEL LESS THAN 0.2 Last administered on 05/01/19at 12:50; Start 04/30/19 at 02:00 Morphine Sulfate (Morphine Sulfate) 2 mg 1X ONCE IV ; Start 04/30/19 at 02:45; Stop 04/30/19 at 02:46; Status DC Influenza Virus Vaccine Quadrival (Afluria Quad 2019-20 (3yr Up) Syringe) 0.5 ml ONCE ONCE VAX IM Last administered on 04/30/19at 21:47; Start 04/30/19 at 09:00; Stop 04/30/19 at 09:01; Status DC Sodium Chloride 1,000 ml @ 75 mls/hr [id number] IV Last administered on 05/01/19at 23:12; Start 04/30/19 at 11:00; Stop 05/02/19 at 17:12; Status DC Metoprolol Tartrate (Lopressor) 25 mg BID PO Last administered on 05/02/19at 20:53; Start 04/30/19 at 11:15 Aspirin (Ecotrin) 81 mg DAILYWBKFT PO Last administered on 05/02/19at 09:48; Start 04/30/19 at 11:15 Iodixanol (Visipaque 320) 100 ml STK-MED ONCE .ROUTE ; Start 04/30/19 at 12:06; Stop 04/30/19 at 12:06; Status DC Fentanyl Citrate (Fentanyl 2ml Vial) 100 mcg STK-MED ONCE .ROUTE ; Start 04/30/19 at 12:06; Stop 04/30/19 at 12:06; Status DC Midazolam HCl (Versed) 2 mg STK-MED ONCE .ROUTE ; Start 04/30/19 at 12:06; Stop 04/30/19 at 12:07; Status DC Heparin Sodium (Porcine) (Heparin Sodium) 10,000 unit STK-MED ONCE .ROUTE ; Start 04/30/19 at 12:06; Stop 04/30/19 at 12:07; Status DC Verapamil HCl (Verapamil) 5 mg STK-MED ONCE .ROUTE ; Start 04/30/19 at 12:06; Stop 04/30/19 at 12:07; Status DC Heparin Sodium/ Sodium Chloride 1,500 ml @ As Directed STK-MED ONCE .ROUTE ; Start 04/30/19 at 12:07; Stop 04/30/19 at 12:07; Status DC Nitroglycerin (Nitroglycerin) 200 mcg STK-MED ONCE .ROUTE ; Start 04/30/19 at 12:07; Stop 04/30/19 at 12:07; Status DC Nitroglycerin (Nitroglycerin) 200 mcg 1X ONCE IART Last administered on 04/30/19at 12:45; Start 04/30/19 at 12:45; Stop 04/30/19 at 12:50; Status DC Verapamil HCl (Verapamil) 2.5 mg 1X ONCE IART Last administered on 04/30/19at 12:45; Start 04/30/19 at 12:45; Stop 04/30/19 at 12:50; Status DC Heparin Sodium (Porcine) (Heparin Sodium) 2,500 unit 1X ONCE IART Last administered on 04/30/19at 12:45; Start 04/30/19 at 12:45; Stop 04/30/19 at 12:50; Status DC Heparin Sodium/ Sodium Chloride (HEPARIN for ARTERIAL LINE FLUSH) 1,000 unit 1X ONCE IART Last administered on 04/30/19at 12:45; Start 04/30/19 at 12:45; Stop 04/30/19 at 12:50; Status DC Heparin Sodium/ Sodium Chloride (HEPARIN for ARTERIAL LINE FLUSH) 1,000 unit 1X ONCE IART Last administered on 04/30/19at 12:45; Start 04/30/19 at 12:45; Stop 04/30/19 at 12:50; Status DC Midazolam HCl (Versed) 2 mg 1X ONCE IV Last administered on 04/30/19at 12:45; Start 04/30/19 at 12:45; Stop 04/30/19 at 12:50; Status DC Fentanyl Citrate (Fentanyl 2ml Vial) 100 mcg 1X ONCE IV Last administered on 04/30/19at 12:45; Start 04/30/19 at 12:45; Stop 04/30/19 at 12:50; Status DC Iodixanol (Visipaque 320) 100 ml 1X ONCE IART Last administered on 04/30/19at 12:45; Start 04/30/19 at 12:45; Stop 04/30/19 at 12:50; Status DC Lidocaine HCl (Xylocaine-Mpf 1% 2ml Vial) 2 ml 1X ONCE INJ Last administered on 04/30/19at 12:45; Start 04/30/19 at 12:45; Stop 04/30/19 at 12:50; Status DC Norepinephrine Bitartrate 250 ml @ 22.875 mls/ hr CONT PRN IV SEE I/O RECORD; Start 04/30/19 at 13:00; Stop 05/01/19 at 16:31; Status DC Furosemide (Lasix) 40 mg 1X ONCE IVP Last administered on 05/01/19at 11:11; Start 05/01/19 at 11:00; Stop 05/01/19 at 11:01; Status DC Clopidogrel Bisulfate (Plavix) 300 mg 1X ONCE PO Last administered on 05/01/19 11:11; Start 05/01/19 at 11:00; Stop 05/01/19 at 11:01; Status DC Clopidogrel Bisulfate (Plavix) 75 mg DAILYWBKFT PO Last administered on 05/02/19 09:48; Start 05/02/19 at 08:00 Acetaminophen (Tylenol) 325 mg PRN Q6HRS PRN PO PAIN; Start 05/01/19 at 12:15; Stop 05/01/19 at 16:30; Status DC Diltiazem HCl (Cardizem 24hr Cd) 240 mg DAILY PO Last administered on 05/02/19 09:48; Start 05/01/19 at 13:00 Divalproex Sodium (Depakote Er) 750 mg DAILY PO Last administered on 05/02/19 09:47; Start 05/01/19 at 13:00 Ibuprofen (Motrin) 400 mg PRN Q6HRS PRN PO INFLAMMATION; Start 05/01/19 at 12:15 Albuterol/ Ipratropium (Duoneb) 3 ml RTQID NEB Last administered on 05/02/19 19:34; Start 05/01/19 at 13:00 Levothyroxine Sodium (Synthroid) 125 mcg DAILY06 PO Last administered on 05/03/19 05:07; Start 05/01/19 at 13:00 Loperamide HCl (Imodium) 2 mg PRN Q3HRS PRN PO DIARRHEA; Start 05/01/19 at 12:15 Metoprolol Tartrate (Lopressor) 25 mg BID PO ; Start 05/01/19 at 13:00; Status UNV Multi-Ingred Cream/Lotion/Oil/ Oint (Hydrocerin Cream) 1 agnes HS TP Last administered on 05/02/19 20:53; Start 05/01/19 at 21:00 Polyethylene Glycol (miraLAX PACKET) 17 gm DAILY PO ; Start 05/01/19 at 13:00; Stop 05/01/19 at 16:33; Status DC Clonazepam (KlonoPIN) 2 mg BID PO Last administered on 05/02/19 20:52; Start 05/01/19 at 21:00 Artois Carbonate 300 mg BID PO Last administered on 05/01/19 13:37; Start 05/01/19 at 13:00; Stop 05/01/19 at 16:30; Status DC Ondansetron HCl (Zofran Odt) 4 mg Q8HRS PO Last administered on 05/01/19at 13:37; Start 05/01/19 at 14:00; Stop 05/01/19 at 16:32; Status DC Oxybutynin Chloride (Ditropan) 2.5 mg PRN BID PRN PO BLADDER SYMPTOMS; Start 05/01/19 at 14:00; Stop 05/01/19 at 16:32; Status DC Non-Formulary Medication (Paliperidone (Invega)) 2 tab DAILY PO ; Start 9 at 09:00; Status UNV Quetiapine Fumarate (SEROquel) 400 mg QHS PO Last administered on 05/02/19 20:52; Start 05/01/19 at 21:00 Zolpidem Tartrate (Ambien) 5 mg PRN QHS PRN PO INSOMNIA; Start 05/01/19 at 12:30 Zolpidem Tartrate (Ambien) 5 mg QHS PO Last administered on 05/02/19 20:52; Start 05/01/19 at 21:00 Acetaminophen (Tylenol) 650 mg PRN Q6HRS PRN PO PAIN; Start 05/01/19 at 16:30 Artois Carbonate (Lithobid) 300 mg BID PO Last administered on 05/02/19at 20:52; Start 05/01/19 at 21:00 Oxybutynin Chloride (Ditropan) 2.5 mg BID PO Last administered on 05/02/19 20:52; Start 05/01/19 at 21:00 Ondansetron HCl (Zofran Odt) 4 mg PRN Q8HRS PRN PO NAUSEA/VOMITING; Start 05/01/19 at 16:45 Polyethylene Glycol (miraLAX PACKET) 17 gm PRN DAILY PRN PO CONSTIPATION; Start 05/01/19 at 16:45 Potassium Chloride (Klor-Con) 40 meq 1X ONCE PO Last administered on 05/02/19at 12:58; Start 05/02/19 at 12:45; Stop 05/02/19 at 12:46; Status DC Lisinopril (Prinivil) 5 mg DAILY PO ; Start 05/03/19 at 09:00 Active Scripts Active Reported Artois Carbonate 300 Mg Tablet.er 300 Mg PO BID Cardizem Cd (Diltiazem Hcl) 240 Mg Cap.er.24h 1 Cap PO DAILY Tylenol (Acetaminophen) 325 Mg Tablet 650 Mg PO PRN Q6HRS PRN 30 Days Zofran (Ondansetron Hcl) 4 Mg Tablet 1 Tab PO Q8HRS PRN 30 Days Miralax (Polyethylene Glycol 3350) 17 Gm Powd.pack 1 Packet PO DAILY PRN 30 Days dissolve in water Anti-Diarrheal (Loperamide Hcl) 2 Mg Capsule 2 Mg PO PRN Q1HR PRN 30 Days Ibuprofen 400 Mg Tablet 400 Mg PO PRN Q6HRS PRN 30 Days Duoneb 0.5-3(2.5) Mg/3 Ml (Albuterol/Ipratropium) 3 Ml Ampul.neb 3 Ml NEB QID PRN 30 Days Divalproex Sodium Er (Divalproex Sodium) 500 Mg Tab.er.24h 750 Mg PO QHS 30 Days Levothyroxine Sodium 125 Mcg Tablet 125 Mcg PO DAILYAC Ditropan Xl (Oxybutynin Chloride) 5 Mg Tab.er.24 5 Mg PO QHS Metoprolol Tartrate 25 Mg Tablet 1 Tab PO BID Seroquel (Quetiapine Fumarate) 400 Mg Tablet 1 Tab PO QHS Invega (Paliperidone) 6 Mg Tab.er.24 2 Tab PO DAILY Eucerin Creme (Mineral Oil/White Petrolatum) 120 Gm Cream..g. 1 Agnes TP HS PRN Clonazepam 2 Mg Tablet 1 Tab PO BID Ambien (Zolpidem Tartrate) 10 Mg Tablet 10 Mg PO QHS Vitals/I & O Vital Sign - Last 24 Hours 05/02/19 05/02/19 05/02/19 05/02/19 08:00 08:28 09:48 09:48 Pulse 82 83 B/P (MAP) 123/70 123/70 Pulse Ox 93 O2 Delivery Room Air Room Air 05/02/19 05/02/19 05/02/19 05/02/19 10:37 12:15 14:39 16:38 Temp 98.2 97.8 98.2 97.8 Pulse 72 66 Resp 18 18 B/P (MAP) 135/71 (92) 134/73 (93) Pulse Ox 89 91 91 91 O2 Delivery Room Air Room Air Room Air Room Air 05/02/19 05/02/19 05/02/19 05/02/19 19:20 19:35 19:50 19:53 Temp 99.4 99.4 Pulse 69 Resp 20 B/P (MAP) 111/67 (82) Pulse Ox 86 92 93 O2 Delivery Room Air Nasal Cannula Nasal Cannula Nasal Cannula O2 Flow Rate 2.0 2.0 2.0 05/02/19 05/02/19 05/03/19 05/03/19 20:53 22:35 03:25 03:35 Temp 99.3 98.9 99.3 98.9 Pulse 69 56 67 Resp 18 20 B/P (MAP) 111/67 125/67 (86) 129/75 (93) Pulse Ox 93 87 93 O2 Delivery Nasal Cannula Room Air Nasal Cannula O2 Flow Rate 2.0 2.0 Intake and Output 05/02/19 05/02/19 05/03/19 15:00 23:00 07:00 Intake Total 720 ml 360 ml 860 ml Output Total 600 ml 100 ml Balance 120 ml 360 ml 760 ml RANDOLPH HAGAN MD May 03, 2019 07:59
[2019-05-03] MEDS: CLOPIDOGREL BISULFATE 75 MG TABLET PO SCH (08:33)
[2019-05-03] MEDS: OXYBUTYNIN CHLORIDE 5 MG TABLET PO SCH (08:33)
[2019-05-03] MEDS: clonazePAM 0.5 MG TABLET PO SCH (08:34)
[2019-05-03] MEDS: ASPIRIN ENTERIC COATED 81 MG TABLET.DR. PO SCH (08:34)
[2019-05-03] MEDS: LITHIUM CARBONATE ER 300 MG TABLET.ER PO SCH (08:34)
[2019-05-03] MEDS: DIVALPROEX EXTENDED RELEASE 250 MG TAB.ER.24H. PO SCH (08:34)
[2019-05-03] MEDS: IPRATRPIUM/ALBUTEROL 0.5/2.5MG 3 ML NEBU. NEB SCH ×2 (08:57→11:36)
[2019-05-03] MEDS ORDERED: LISINOPRIL 5 MG TABLET. PO SCH (09:00)
[2019-05-03 10:42] VITALS: BP 154/63
[2019-05-03] MEDS ORDERED: METOPROLOL TART IMMED RELEASE 25 MG TABLET. PO SCH (11:00)
--- NOTE | 2019-05-03 13:08 | NUR ---
SS following up with discharge planning. New discharge orders received for return to [facility], ; fax [phone]. SS phoned and faxed discharge orders to [place]. Pt's mother reporting that she will transport pt [facility] to [facility] when ready. Per pt's RN, ECHO has not seen pt at this time. SS will continue to follow for discharge planning.
--- NOTE | 2019-05-03 13:53 | PDOC ---
JONO BRASHER MEDICAL TERRITORY MANAGER 05/03/19 1353: CARDIO Progress Notes Date and Time Date of Service 05/03/19 Time of Evaluation 1310 Subjective Subjective: No Chest Pain, No shortness of breath, No Palpitations Vitals Vitals Vital Signs Date Time Temp Pulse Resp B/P (MAP) Pulse Ox O2 Delivery O2 Flow Rate FiO2 05/03/19 11:41 91 Room Air 05/03/19 11:05 63 154/63 05/03/19 10:42 97.7 20 97.7 05/03/19 08:00 2.0 Weight Weight [ ] Input and Output Intake and Output Intake and Output 05/03/19 07:00 Intake Total 1940 ml Output Total 700 ml Balance 1240 ml Intake Oral 1940 ml Output Urine Total 700 ml # Voids 8 Laboratory Labs Laboratory Tests Test 05/03/19 04:40 White Blood Count 10.2 x10^3/uL (4.0-11.0) Red Blood Count 3.76 x10^6/uL (3.50-5.40) Hemoglobin 10.7 g/dL (12.0-15.5) Hematocrit 32.5 % (36.0-47.0) Mean Corpuscular Volume 87 fL (79-100) Mean Corpuscular Hemoglobin 28 pg (25-35) Mean Corpuscular Hemoglobin Concent 33 g/dL (31-37) Red Cell Distribution Width 14.7 % (11.5-14.5) Platelet Count 233 x10^3/uL (140-400) Neutrophils (%) (Auto) 69 % (31-73) Lymphocytes (%) (Auto) 16 % (24-48) Monocytes (%) (Auto) 11 % (0-9) Eosinophils (%) (Auto) 3 % (0-3) Basophils (%) (Auto) 1 % (0-3) Neutrophils # (Auto) 7.1 x10^3/uL (1.8-7.7) Lymphocytes # (Auto) 1.6 x10^3/uL (1.0-4.8) Monocytes # (Auto) 1.1 x10^3/uL (0.0-1.1) Eosinophils # (Auto) 0.3 x10^3/uL (0.0-0.7) Basophils # (Auto) 0.1 x10^3/uL (0.0-0.2) Sodium Level 144 mmol/L (136-145) Potassium Level 4.0 mmol/L (3.5-5.1) Chloride Level 108 mmol/L (98-107) Carbon Dioxide Level 28 mmol/L (21-32) Anion Gap 8 (6-14) Blood Urea Nitrogen 7 mg/dL (7-20) Creatinine 0.9 mg/dL (0.6-1.0) Estimated GFR (Cockcroft-Gault) 65.2 BUN/Creatinine Ratio 8 (6-20) Glucose Level 113 mg/dL (70-99) Calcium Level 8.9 mg/dL (8.5-10.1) Total Bilirubin 0.2 mg/dL (0.2-1.0) Aspartate Amino Transf (AST/SGOT) 29 U/L (15-37) Alanine Aminotransferase (ALT/SGPT) 51 U/L (14-59) Alkaline Phosphatase 59 U/L (46-116) Total Protein 6.4 g/dL (6.4-8.2) Albumin 2.4 g/dL (3.4-5.0) Albumin/Globulin Ratio 0.6 (1.0-1.7) Physical Exam HEENT: Neck Supple W Full Motion Chest: Symmetric LUNGS: Clear to Auscultation Heart: S1S2, RRR (SR, SB) Abdomen: Soft N/T Extremities: No Edema Neurology: alert, follow commands Assessment Assessment 1. Acute hypoxic respiratory failure, multifactorial. 2. NSTEMI; troponin trended downward. 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 3. Acute on chronic diastolic/systolic CHF, possible cor pulmonale. Appears compensated 4. 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 Hypertension; controlled 6. Sinus bradycardia. Few 1-2 second pauses noted yesterday afternoon. None further since Recommendations Decrease metoprolol to 12.5 BID Secondary prevention including DAPT with ASA, Plavix. BB therapy Continue HF optimization May discharge from a CV standpoint and f/u in our office with Dr. Cruz as scheduled. MIC OLSON MD 05/04/19 0802: JONO BRASHER APRN May 03, 2019 13:53 MIC OLSON MD May 04, 2019 08:02
--- NOTE | 2019-05-03 14:10 | PDOC3 ---
Discharge Summary Visit Information Date of Admission: Apr 30, 2019 Date of Discharge: May 03, 2019 Admitting Diagnosis: NSTEMI Final Diagnosis Problems Medical Problems: (1) NSTEMI (non-ST elevated myocardial infarction) Status: Acute Brief Hospital Course Allergies Allergies Coded Allergies Type Severity Reaction Last Updated Verified haloperidol Allergy Severe tongue swelling 04/30/19 Yes Vital Signs Vital Signs Date Time Temp Pulse Resp B/P (MAP) Pulse Ox O2 Delivery O2 Flow Rate FiO2 05/03/19 11:41 91 Room Air 05/03/19 11:05 63 154/63 05/03/19 10:42 97.7 20 97.7 05/03/19 08:00 2.0 Lab Results Laboratory Tests Test 05/02/19 03:25 05/03/19 04:40 White Blood Count 10.5 x10^3/uL (4.0-11.0) 10.2 x10^3/uL (4.0-11.0) Red Blood Count 3.95 x10^6/uL (3.50-5.40) 3.76 x10^6/uL (3.50-5.40) Hemoglobin 11.3 g/dL (12.0-15.5) 10.7 g/dL (12.0-15.5) Hematocrit 34.5 % (36.0-47.0) 32.5 % (36.0-47.0) Mean Corpuscular Volume 88 fL (79-100) 87 fL (79-100) Mean Corpuscular Hemoglobin 29 pg (25-35) 28 pg (25-35) Mean Corpuscular Hemoglobin Concent 33 g/dL (31-37) 33 g/dL (31-37) Red Cell Distribution Width 14.6 % (11.5-14.5) 14.7 % (11.5-14.5) Platelet Count 219 x10^3/uL (140-400) 233 x10^3/uL (140-400) Neutrophils (%) (Auto) 73 % (31-73) 69 % (31-73) Lymphocytes (%) (Auto) 15 % (24-48) 16 % (24-48) Monocytes (%) (Auto) 10 % (0-9) 11 % (0-9) Eosinophils (%) (Auto) 2 % (0-3) 3 % (0-3) Basophils (%) (Auto) 1 % (0-3) 1 % (0-3) Neutrophils # (Auto) 7.7 x10^3/uL (1.8-7.7) 7.1 x10^3/uL (1.8-7.7) Lymphocytes # (Auto) 1.6 x10^3/uL (1.0-4.8) 1.6 x10^3/uL (1.0-4.8) Monocytes # (Auto) 1.0 x10^3/uL (0.0-1.1) 1.1 x10^3/uL (0.0-1.1) Eosinophils # (Auto) 0.2 x10^3/uL (0.0-0.7) 0.3 x10^3/uL (0.0-0.7) Basophils # (Auto) 0.0 x10^3/uL (0.0-0.2) 0.1 x10^3/uL (0.0-0.2) Sodium Level 142 mmol/L (136-145) 144 mmol/L (136-145) Potassium Level 3.3 mmol/L (3.5-5.1) 4.0 mmol/L (3.5-5.1) Chloride Level 104 mmol/L (98-107) 108 mmol/L (98-107) Carbon Dioxide Level 29 mmol/L (21-32) 28 mmol/L (21-32) Anion Gap 9 (6-14) 8 (6-14) Blood Urea Nitrogen 9 mg/dL (7-20) 7 mg/dL (7-20) Creatinine 1.0 mg/dL (0.6-1.0) 0.9 mg/dL (0.6-1.0) Estimated GFR (Cockcroft-Gault) 57.8 65.2 BUN/Creatinine Ratio 9 (6-20) 8 (6-20) Glucose Level 126 mg/dL (70-99) 113 mg/dL (70-99) Calcium Level 9.1 mg/dL (8.5-10.1) 8.9 mg/dL (8.5-10.1) Magnesium Level 2.2 mg/dL (1.8-2.4) Total Bilirubin 0.2 mg/dL (0.2-1.0) 0.2 mg/dL (0.2-1.0) Aspartate Amino Transf (AST/SGOT) 57 U/L (15-37) 29 U/L (15-37) Alanine Aminotransferase (ALT/SGPT) 61 U/L (14-59) 51 U/L (14-59) Alkaline Phosphatase 71 U/L (46-116) 59 U/L (46-116) Total Protein 7.1 g/dL (6.4-8.2) 6.4 g/dL (6.4-8.2) Albumin 2.7 g/dL (3.4-5.0) 2.4 g/dL (3.4-5.0) Albumin/Globulin Ratio 0.6 (1.0-1.7) 0.6 (1.0-1.7) Laboratory Tests Test 05/03/19 04:40 White Blood Count 10.2 x10^3/uL (4.0-11.0) Red Blood Count 3.76 x10^6/uL (3.50-5.40) Hemoglobin 10.7 g/dL (12.0-15.5) Hematocrit 32.5 % (36.0-47.0) Mean Corpuscular Volume 87 fL (79-100) Mean Corpuscular Hemoglobin 28 pg (25-35) Mean Corpuscular Hemoglobin Concent 33 g/dL (31-37) Red Cell Distribution Width 14.7 % (11.5-14.5) Platelet Count 233 x10^3/uL (140-400) Neutrophils (%) (Auto) 69 % (31-73) Lymphocytes (%) (Auto) 16 % (24-48) Monocytes (%) (Auto) 11 % (0-9) Eosinophils (%) (Auto) 3 % (0-3) Basophils (%) (Auto) 1 % (0-3) Neutrophils # (Auto) 7.1 x10^3/uL (1.8-7.7) Lymphocytes # (Auto) 1.6 x10^3/uL (1.0-4.8) Monocytes # (Auto) 1.1 x10^3/uL (0.0-1.1) Eosinophils # (Auto) 0.3 x10^3/uL (0.0-0.7) Basophils # (Auto) 0.1 x10^3/uL (0.0-0.2) Sodium Level 144 mmol/L (136-145) Potassium Level 4.0 mmol/L (3.5-5.1) Chloride Level 108 mmol/L (98-107) Carbon Dioxide Level 28 mmol/L (21-32) Anion Gap 8 (6-14) Blood Urea Nitrogen 7 mg/dL (7-20) Creatinine 0.9 mg/dL (0.6-1.0) Estimated GFR (Cockcroft-Gault) 65.2 BUN/Creatinine Ratio 8 (6-20) Glucose Level 113 mg/dL (70-99) Calcium Level 8.9 mg/dL (8.5-10.1) Total Bilirubin 0.2 mg/dL (0.2-1.0) Aspartate Amino Transf (AST/SGOT) 29 U/L (15-37) Alanine Aminotransferase (ALT/SGPT) 51 U/L (14-59) Alkaline Phosphatase 59 U/L (46-116) Total Protein 6.4 g/dL (6.4-8.2) Albumin 2.4 g/dL (3.4-5.0) Albumin/Globulin Ratio 0.6 (1.0-1.7) Brief Hospital Course Ms Chadwick is a 53yo F w/ PMHx bipolar disorder alf SNF resident who is admitted for shortness of breath found with an NSTEMI and went to [facility] 04/30 with likely coronary artery dissection vs stress induced cardiomyopathy found. Troponin peak 12.2 Pt was quite talkative today and seems to be at her baseline. Is awaiting an echocardiogram currently. No pain complaints. Mild shortness of breath DW RN and pt's mother Chest pain Acute hypoxic respiratory failure Bipolar disorder Anxiety hypothyroidism chronic diastolic CHF hypertension insomnia urinary incontinence Greater than 30 minutes spent on discharge Discharge Information Condition at Discharge: Improved Follow Up: Weeks Disposition/Orders: D/C to Another Facility Scheduled Clonazepam (Clonazepam) 2 Mg Tablet, 1 TAB PO BID, #90 (Reported) Entered as Reported by: TERRI CORREIA on 09/24/15 0248 Last Taken: Unknown Dose on 04/29/191999 Last Action: Edited on 05/01/19 1629 by STEFAN MONZON [facility] Diltiazem Hcl (Cardizem Cd) 240 Mg Cap.er.24h, 1 CAP PO DAILY for heart failure, #30 Ref 5 (Reported) Entered as Reported by: MARLENE MENDOZA RN on 04/30/19609 Last Taken: Unknown Dose on 04/29/191999 Last Action: Continued on 05/01/191219 by BRI ATWOOD RN Divalproex Sodium (Divalproex Sodium Er) 500 Mg Tab.er.24h, 750 MG PO QHS for Bipolar Disorder for 30 Days, #45 (Reported) Entered as Reported by: MARLENE MENDOZA RN on 04/30/19608 Last Taken: Unknown Dose on 04/29/191999 Last Action: Edited on 05/01/191628 by STEFAN MONZON [facility] Levothyroxine Sodium (Levothyroxine Sodium) 125 Mcg Tablet, 125 MCG PO DAILYAC for THYROID SUPPLEMENT, #30 Ref 0 (Reported) Entered as Reported by: MARLENE MENDOZA RN on 04/30/19608 Last Action: Continued on 05/01/191219 by BRI ATWOOD RN [place] Carbonate ([place] Carbonate) 300 Mg Tablet.er, 300 MG PO BID, (Reported) Entered as Reported by: STEFAN MONZON RPH on 05/01/191628 Last Action: New Order on 05/01/191628 by STEFAN MONZON RPH Metoprolol Tartrate (Metoprolol Tartrate) 25 Mg Tablet, 1 TAB PO BID, #180 Ref 1 (Reported) Entered as Reported by: ISABEL ALFONSO on 10/12/15 1546 Last Taken: Unknown Dose on 04/29/191999 Last Action: Continued on 05/01/191219 by BRI ATWOOD RN Oxybutynin Chloride (Ditropan Xl) 5 Mg Tab.er.24, 5 MG PO QHS, #30 (Reported) Entered as Reported by: MARLENE MENDOZA RN on 04/30/19 0547 Last Taken: Unknown Dose on 04/29/191999 Last Action: Edited on 05/01/19 163 by STEFAN MONZON RP Paliperidone (Invega) 6 Mg Tab.er.24, 2 TAB PO DAILY, #30 Ref 2 (Reported) Entered as Reported by: TERRI CORREIA on 3/7/16 0248 Last Taken: Unknown Dose on 04/29/191999 Last Action: Converted on 05/01/191219 by BRI ATWOOD RN Quetiapine Fumarate (Seroquel) 400 Mg Tablet, 1 TAB PO QHS, #30 Ref 1 (Reported) Entered as Reported by: TERRI CORREIA on 09/24/15247 Last Taken: Unknown Dose on 04/29/191999 Last Action: Converted on 05/01/191219 by BRI ATWOOD RN Zolpidem Tartrate (Ambien) 10 Mg Tablet, 10 MG PO QHS, Ref 0 (Reported) Entered as Reported by: TERRI CORREIA on 09/24/15247 Last Taken: Unknown Dose on 04/29/191999 Last Action: Converted on 05/01/191219 by BRI ATWOOD RN Scheduled PRN Acetaminophen (Tylenol) 325 Mg Tablet, 650 MG PO PRN Q6HRS PRN for PAIN for 30 Days, (Reported) Entered as Reported by: MARLENE MENDOZA RN on 04/30/19608 Last Taken: Unknown Dose on 04/29/191999 Last Action: Edited on 05/01/191628 by STEFAN MONZON [facility] Ibuprofen (Ibuprofen) 400 Mg Tablet, 400 MG PO PRN Q6HRS PRN for INFLAMMATION for 30 Days, (Reported) Entered as Reported by: MARLENE MENDOZA RN on 04/30/19608 Last Taken: Unknown Dose on 04/29/191999 Last Action: Continued on 05/01/191219 by BRI ATWOOD RN Ipratropium/Albuterol Sulfate (Duoneb 0.5-3(2.5) Mg/3 Ml) 3 Ml Ampul.neb, 3 ML NEB QID PRN for SHORTNESS OF BREATH for 30 Days, #120 (Reported) Entered as Reported by: MARLENE MENDOZA RN on 04/30/19608 Last Taken: Unknown Dose on Unknown Date & Time Last Action: Edited on 05/01/191628 by STEFAN MONZON [facility] Loperamide Hcl (Anti-Diarrheal) 2 Mg Capsule, 2 MG PO PRN Q1HR PRN for DIARRHEA for 30 Days, (Reported) Entered as Reported by: MARLENE MENDOZA RN on 04/30/19608 Last Taken: Unknown Dose on Unknown Date & Time Last Action: Edited on 05/01/191628 by STEFAN MONZON RP Mineral Oil/Petrolatum,White (Eucerin Creme ) 120 Gm Cream..g., 1 ELISA TP HS PRN for SKIN BREAKDOWN, #1 (Reported) Entered as Reported by: TERRI CORREIA on 09/24/15247 Last Taken: Unknown Dose on 04/29/191999 Last Action: Edited on 05/01/191628 by STEFAN MONZON RP Ondansetron Hcl (Zofran) 4 Mg Tablet, 1 TAB PO Q8HRS PRN for NAUSEA for 30 Days, #90 (Reported) Entered as Reported by: MARLENE MENDOZA RN on 04/30/19608 Last Taken: Unknown Dose on Unknown Date & Time Last Action: Edited on 05/01/191628 by STEFAN MONZON RP Polyethylene Glycol 3350 (Miralax) 17 Gm Powd.pack, 1 PACKET PO DAILY PRN for CONSTIPATION for 30 Days, #30 Ref 0 (Reported) dissolve in water Entered as Reported by: MARLENE MENDOZA RN on 04/30/19608 Last Taken: Unknown Dose on Unknown Date & Time Last Action: Edited on 05/01/191628 by STEFAN MONZON [facility] Discontinued Medications Diltiazem Hcl (Diltiazem 24HR Cd) 120 Mg Cap.er.24h, 1 CAP PO DAILY, #90 Ref 1 (Reported) Entered as Reported by: ISABEL ALFONSO on 10/12/15 1546 Last Action: Discontinued on 04/30/19607 by MARLENE MENDOZA RN Diltiazem Hcl (Cardizem Cd) 180 Mg Cap.er.24h, 1 CAP PO DAILY for heart failure, #90 Ref 1 (Reported) Entered as Reported by: MARLENE MENDOZA RN on 04/30/19608 Last Taken: Unknown Dose on 04/29/191999 Last Action: Discontinued on 04/30/19609 by MARLENE MENDOZA RN Guaifenesin (Tussin Chest Congestion) 100 Mg/5 Ml Liquid, 100 MG PO PRN Q4HRS PRN for COUGH, (Reported) Entered as Reported by: TERRI CORREIA on 09/24/15247 Last Action: Discontinued on 04/30/19607 by MARLENE MENDOZA RN Levothyroxine Sodium (Levothyroxine Sodium) 100 Mcg Tablet, 1 TAB PO DAILY, #90 Ref 1 (Reported) Discontinued Reason: Prescription changed Entered as Reported by: TERRI CORREIA on 09/24/15247 [place] Carbonate ([place] Carbonate) 300 Mg Tablet, 1 TAB PO BID for manic ep isode w/psychosis for 30 Days, #60 Ref 1 (Reported) Discontinued Reason: CHANGE Entered as Reported by: MARLENE MENDOZA RN on 04/30/19608 Last Taken: Unknown Dose on 04/29/191999 Last Action: Discontinued on 05/01/19 162 by STEFAN MONZON [facility] Nicotine Polacrilex (Nicotine Gum) 4 Mg Gum, 4 MG BC PRN PRN for SMOKING CESSATION, (Reported) Entered as Reported by: TERRI CORREIA on 09/24/15247 Last Action: Discontinued on 04/30/19 0535 by MARLENE MENDOZA RN Quetiapine Fumarate (Seroquel) 300 Mg Tablet, 1 TAB PO QHS, #30 Ref 1 (Reported) Entered as Reported by: TERRI CORREIA on 09/24/15247 Last Action: Discontinued on 04/30/19607 by ESTEFANIA STOLL CHRISTOPHER S MD May 03, 2019 14:10
[2019-05-03] MEDS ORDERED: ATOR40TA59 PO (14:44)
[2019-05-03] MEDS ORDERED: CLOP75TA PO (14:44)
[2019-05-03] MEDS ORDERED: METO25TA4 PO (14:44)
[2019-05-03] MEDS ORDERED: LISI-338 PO (14:44)
[2019-05-03 14:59] VITALS: BP 147/83
--- NOTE | 2019-05-03 16:00 | NUR ---
Attempted to call report to [facility], was sent to voicemail twice. voicemail left and spoke with paralegal legal secretary and left my name and number, she said she would let them know to call me.
--- NOTE | 2019-05-03 16:49 | CARD ---
MR#: [id number] Date of Study: 05/03/2019 Ordering Physician: JONO BRASHER, Referring Physician: JONO BRASHER, Tech: Olya Flanagan APPROVED REPORT EXAM: Two-dimensional and M-mode echocardiogram with Doppler and color Doppler. Other Information Quality : AverageHR: 59bpm Technically limited study due to body habitus. INDICATION Non STEMI 2D DIMENSIONS RVDd2.8 (2.9-3.5cm)Left Atrium(2D)3.7 (1.6-4.0cm) IVSd1.0 (0.7-1.1cm)Aortic Root(2D)2.8 (2.0-3.7cm) LVDd5.1 (3.9-5.9cm)LVOT Diameter2.2 (1.8-2.4cm) PWd1.0 (0.7-1.1cm)LVDs4.0 (2.5-4.0cm) FS (%) 21.8 %SV55.1 ml LVEF(%)43.9 (>50%) Aortic Valve AoV Peak Tai.139.4cm/sAoV VTI29.7cm AO Peak GR.7.8mmHgLVOT VTI 22.15cm AO Mean GR.5mmHg Mitral Valve MV E Semfblpo348.3cm/sMV DECEL [id number] MV A Rcmxovuu50.6cm/sE/A Ratio1.4 TDI Lateral E' P. V7.47cm/sMedial E' P. V9.72cm/s E/Lateral E'15.2E/Medial E'11.7 Tricuspid Valve RAP [id number] Pulmonary Vein S1 Azzkzdix67.1cm/sS2 Kvrcctvm72.36cm/s D2 Rwgqflkq63.4cm/sPVa [id number] LEFT VENTRICLE The left ventricle is normal size. There is mild concentric left ventricular hypertrophy. The left ve ntricular systolic function is normal and the ejection fraction is within normal range. The Ejection Fraction is 50-55%. The mid to distal septum is moderately hypokinetic. Transmitral Doppler flow froy mary is Grade II-pseudonormal filling dynamics. RIGHT VENTRICLE The right ventricle is normal size. There is normal right ventricular wall thickness. The right ventr icular systolic function is normal. ATRIA The left atrium is borderline dilated. The right atrium is borderline dilated. The interatrial septum is intact with no evidence for an atrial septal defect or patent foramen ovale as noted on 2-D or Do ppler imaging. AORTIC VALVE The aortic valve is normal in structure and function. Doppler and Color Flow revealed no significant aortic regurgitation. There is no significant aortic valvular stenosis. MITRAL VALVE The mitral valve is normal in structure and function. There is no evidence of mitral valve prolapse. There is no mitral valve stenosis. Doppler and Color Flow revealed no mitral valve regurgitation note d. TRICUSPID VALVE The tricuspid valve is normal in structure and function. Doppler and Color Flow revealed trace tricus pid regurgitation. There is no tricuspid valve prolapse or vegetation. There is no tricuspid valve st enosis. PULMONIC VALVE The pulmonic valve is not well visualized. Doppler and Color Flow revealed no pulmonic valvular regur gitation. There is no pulmonic valvular stenosis. GREAT VESSELS The aortic root is normal in size. The IVC is normal in size and collapses >50% with inspiration. PERICARDIAL EFFUSION There is no evidence of significant pericardial effusion. Critical Notification Critical Value: No <Conclusion> The left ventricular systolic function is normal and the ejection fraction is within normal range. Th e Ejection Fraction is 50-55%. The mid to distal septum is moderately hypokinetic. Signed by : Jhonny Pierre, Electronically Approved : 05/03/2019 16:49:10
--- NOTE | 2019-05-05 15:25 | DS ---
DATE OF DISCHARGE: 05/03/2019 ADMISSION DIAGNOSIS: Acute myocardial infarction. DISCHARGE DIAGNOSES: Resolving acute myocardial infarction with cardiac catheterization, but no stent was placed (she had a max troponin of 12.2, but no severe coronary artery disease was noted). HOSPITAL COURSE: The patient is a pleasant 53-year-old female who presented with chest pain. She was admitted and her troponin did bump up to 12. She was taken to the catheterization laboratory, but it was surprisingly negative. She was discharged to home on medical management. DISPOSITION: Home with medical management. ACTIVITY: As tolerated. DIET: Low sodium. MEDICATIONS: Please see MRAD. TOTAL TIME: 31 minutes. JUAN ANTONIO SANDY DO DR: CHERYL/archie JOB#: [id number] / [id number]
== END 2019-05-03 15:34 | disposition home or self-care (01) | DRG 280 ==
LOC: ER 23:10 → 1 WEST ICU 04-30 01:50 → 2 NORTH 05-01 11:18
PROVIDERS: ADMIT Internal Medicine; ATTEND Internal Medicine
PROC: B215YZZ Fluoroscopy of Left Heart using Other Contrast (ICD-10-PCS; principal; 2019-04-30)
PROC: 4A023N8 Measurement of Cardiac Sampling and Pressure, Bilateral, Percutaneous Approach (ICD-10-PCS; 2019-04-30)
PROC: B211YZZ Fluoroscopy of Multiple Coronary Arteries using Other Contrast (ICD-10-PCS; 2019-04-30)
DX: I21.4 Non-ST elevation (NSTEMI) myocardial infarction (principal); J96.01 Acute respiratory failure with hypoxia; I50.43 Acute on chronic combined systolic (congestive) and diastolic (congestive) heart failure; Z68.41 Body mass index [BMI] 40.0-44.9, adult; I11.0 Hypertensive heart disease with heart failure; E03.9 Hypothyroidism, unspecified; E78.00 Pure hypercholesterolemia, unspecified; F20.9 Schizophrenia, unspecified; F31.9 Bipolar disorder, unspecified; F41.9 Anxiety disorder, unspecified; G47.00 Insomnia, unspecified; I27.81 Cor pulmonale (chronic); R32 Unspecified urinary incontinence; Z82.49 Family history of ischemic heart disease and other diseases of the circulatory system; Z87.891 Personal history of nicotine dependence; Z88.8 Allergy status to other drugs, medicaments and biological substances; E66.01 Morbid (severe) obesity due to excess calories
CPT/HCPCS: 36415; 71045; 80053; 83690; 83735; 83880; 84484; 85007; 85025; 85347; 85520; 90471; 90686; 93005; 93306; 93461; 93970; 94640; 94760; 99152; 99153; C1769; C1773; C1892; J1644; J1940; J2250; J3010; J3490; J7030; J7620; Q0162; Q9967; 99285-25; G0378